=== PATIENT | male | born 1955 | race Caucasian/White ===

== ENCOUNTER 2023-03-23 13:26 | Emergency (ER) | payer OTHER ==
--- OUTSIDE RECORDS SUMMARY | 2023-03-23 13:29 | XMS REPORT | Continuity of Care Document ---
:1955 Author Organization [facility] t Address [address] [place] [address] [place] [id number] Care Team Providers Name Role Phone TOVA MAJANO Attending Clinician Unavailable Tova Majano MD Attending Clinician Doctor Unassigned, [place] Attending Clinician Unavailable Payers Payer Name Policy Type Policy Number Effective Date Expiration Date sandro MEDICARE PART A [id number] 2018 \T\ B 00:00:00 [facility] FELICIA LOPEZ [id number] 2018 00:00:00 Problems This patient has no known problems. Allergies, Adverse Reactions, Alerts Allergy Allergy Status Severity Reaction(s) Onset Inactive Treating Comm ents Source Name Type Date Date Clinician CODEINE DRUG Active Med ITCHING 2018-10 [facility] INGREDI 11-08 ity of 00:00: [address] Medications This patient has no known medications. Procedures This patient has no known procedures. Encounters Start End Encounter Admission Attending Care Care Encounter Source Date/Time Date/Time Type Type Clinicians Facility Department ID 2021-03-28 2021-03-28 Outpatient TOVA ALLEN [facility] [id number] Univers 13:30:00 13:30:00 ity of [facility] 2020-03-22 2020-03-22 Office Tova MajanoIT [id number] 13:37:03 14:05:51 Visit [facility] [id number] [facility] [id number] 2020-03-22 2020-03-22 Outpatient R TOVA MAJANO [facility] [id number] Univers 14:00:00 14:00:00 ity [facility] 2020-03-12 2020-03-12 Orders Doctor SREE [id number] 00:00:00 00:00:00 Only Unassigned, JOHN [id number] [place] [facility] [id number] Results This patient has no known results.
[2023-03-23 14:33] LABS: Hematocrit 33.3 % (39.6-49.0); MCV 70.6 fL (80-100); MPV 7.2 fL (7.6-11.3); RBC Red Blood Cell Count 4.71 M/uL (4.33-5.43)
[2023-03-23 14:47] LABS: Potassium 3.3 mEq/L (3.5-5.1)
[2023-03-23] MEDS ORDERED: MAGNESIUM SULFATE 1 gm IVPB 1 GM/100 ML BAG IV ONE (15:33)
[2023-03-23] MEDS ORDERED: Magnesium Sulfate 2gm IVPB 2 G/50 ML BAG IV ONE (15:34)
[2023-03-23] MEDS ORDERED: POTASSIUM CL SA 10 MEQ TAB PO ONE (16:35)
[2023-03-23] MEDS ORDERED: CALCIUM GLUCONATE 1 GM IVPB 1 GM/50 ML BAG IV ONE (16:35)
--- NOTE | 2023-03-23 18:34 | ER ---
Nurse's Notes [facility] Name: Omar Fan Jr Age: 67 yrs Sex: Male : 1955 Arrival Date: 03/23/2023 Time: 13:26 Bed 10 Private MD: Jorge Grayson Diagnosis: Hypomagnesemia;Anemia, unspecified;Hypocalcemia;Hypokalemia Presentation: 03/23 13:48 Chief complaint: Patient states: Dr. Grayson office sent to ER for abnormal lab ld1 results. Coronavirus screen: At this time, the client does not indicate any symptoms associated with coronavirus-19. Ebola Screen: No symptoms or risks identified at this time. Initial Sepsis Screen: Does the patient meet any 2 criteria? No. Patient's initial sepsis screen is negative. Does the patient have a suspected source of infection? No. Patient's initial sepsis screen is negative. Risk Assessment: Do you want to hurt yourself or someone else? Patient reports no desire to harm self or others. Onset of symptoms was March 23, 2023. 13:48 Method Of Arrival: Ambulatory ld1 13:48 Acuity: YUSUF 3 ld1 Triage Assessment: 13:45 General: Appears in no apparent distress. comfortable, Behavior is calm, cooperative, ld1 appropriate for age. Pain: Denies pain. EENT: No signs and/or symptoms were reported regarding the EENT system. Neuro: Level of Consciousness is awake, alert, obeys commands, Oriented to person, place, time, situation. Cardiovascular: Capillary refill < 3 seconds Patient's skin is warm and dry. Respiratory: Airway is patent Respiratory effort is even, unlabored, Breath sounds with wheezes bilaterally. GI: Abdomen is round non-distended. : No signs and/or symptoms were reported regarding the genitourinary system. Derm: No signs and/or symptoms reported regarding the dermatologic system. Musculoskeletal: No signs and/or symptoms reported regarding the musculoskeletal system. Historical: - Allergies: 13:45 Codeine; ld1 - PMHx: 13:45 Hypertensive disorder; Diabetes mellitus; BPH; GERD; Restless leg syndrome; Depressive ld1 disorder; - PSHx: 13:45 None; ld1 - Immunization history:: Adult Immunizations up to date, Client reports receiving the 2nd dose of the Covid vaccine. - Social history:: Smoking status: Patient denies any tobacco usage or history of. Patient/guardian denies using alcohol, Smoking status: Patient reports the use of cigarette tobacco products, smokes one pack cigarettes per day. Screenin:03 [facility] ED Fall Risk Assessment (Adult) History of falling in the last 3 months, nj1 including since admission No falls in past 3 months (0 pts) Confusion or Disorientation No (0 pts) Intoxicated or Sedated No (0 pts) Impaired Gait No (0 pts) Mobility Assist Device Used No (0 pt) Altered Elimination No (0 pt) Score/Fall Risk Level 0 - 2 = Low Risk Oriented to surroundings, Maintained a safe environment, Hourly rounding (assess needs \T\ fall precautionary measures) done. Abuse screen: Denies threats or abuse. Denies injuries from another. Nutritional screening: No deficits noted. Tuberculosis screening: No symptoms or risk factors identified. Assessment: 15:30 Reassessment: Patient appears in no apparent distress at this time. Patient and/or nj1 family updated on plan of care and expected duration. Pain level reassessed. Patient is alert, oriented x 3, equal unlabored respirations, skin warm/dry/pink. Patient denies pain at this time. Vital Signs: 13:45 BP 145 / 79; Pulse 71; Resp 18; Temp 97.9(TE); Pulse Ox 96% on R/A; Weight 108.86 kg; ld1 Height 5 ft. 8 in. ; Pain 0/10; 15:49 BP 131 / 73; Pulse 74; Resp 15; Pulse Ox 98% ; aw1 17:35 BP 127 / 77; Pulse 79; Resp 18; Pulse Ox 95% on R/A; Pain 0/10; nj1 18:25 BP 133 / 77; Pulse 78; Resp 18; Pulse Ox 96% on R/A; Pain 0/10; nj1 13:45 Body Mass Index 36.49 (108.86 kg, 172.72 cm) ld1 13:45 Pain Scale: Adult ld1 17:35 Pain Scale: Adult nj1 18:25 Pain Scale: Adult nj1 ED Course: 13:31 Patient arrived in ED. im 13:31 Jorge Grayson MD is Private Physician. im 13:34 Andrew Arguello MD is Attending Physician. rt 13:43 Attending Physician role handed off by Andrew Arguello MD ms3 13:43 Yosef Landis DO is Attending Physician. ms3 13:45 Arm band placed on right wrist. ld1 13:49 Triage completed. ld1 14:31 CBC w/o diff Sent. zm 14:31 Magnesium Sent. zm 14:31 BMP Sent. zm 14:31 Inserted saline lock: 20 gauge in right antecubital area, using aseptic technique. zm Blood collected. 14:33 Initial lab(s) drawn, by nv, sent to lab. zm 15:02 Laurel Shipman, RN is Primary Nurse. nj1 15:04 Patient has correct armband on for positive identification. Bed in low position. Call nj1 light in reach. Adult w/ patient. 16:35 Inserted saline lock: 22 gauge in left antecubital area, using aseptic technique. nj1 18:31 No provider procedures requiring assistance completed. nj1 18:33 Jorge Grayson MD is Referral Physician. ms3 18:40 IV discontinued, intact, bleeding controlled. nj1 Administered Medications: 15:32 Drug: Magnesium Sulfate IVPB 3 grams Route: IVPB; Infused Over: 3 hrs; Site: right [facility] antecubital; 16:40 Follow up: Response: No adverse reaction nj1 18:25 Follow up: IV Status: Completed infusion; IV Intake: 150ml nj1 16:30 Drug: Potassium Chloride PO 40 mEq Route: PO; nj1 17:36 Follow up: Response: No adverse reaction nj1 16:38 Drug: Calcium Gluconate IVPB 1 grams Route: IVPB; Infused Over: 60 mins; Site: left [facility] antecubital; 17:34 Follow up: Response: No adverse reaction; IV Status: Completed infusion; IV Intake: [id number] Medication: 18:31 VIS not applicable for this client. nj1 Intake: 17:34 IV: 50ml; Total: 50ml. nj1 18:25 IV: 150ml; Total: 200ml. nj1 Outcome: 18:33 Discharge ordered by . ms3 18:40 Discharged to home ambulatory. nj1 18:40 Condition: stable 18:40 Discharge instructions given to patient, Instructed on discharge instructions, follow up and referral plans. medication usage, Demonstrated understanding of instructions, follow-up care, medications, Prescriptions given X 1. 18:45 Patient left the ED. nj1 Signatures: Yosef Landis, DO ms3 Jolie Landis RN RN ld1 Gayarti Reagan Ryan, MD MD rt Laurel Shipman RN RN nj1 Marry Phillips Alyssa aw1 Corrections: (The following items were deleted from the chart) 13:47 13:45 Allergies: No Known Allergies; ld1 ld1 18:54 18:54 Patient left the ED. nj1 nj1
--- NOTE | 2023-03-23 18:34 | EDPHYS ---
Physician Documentation [facility] Name: Omar Fan Jr Age: 67 yrs Sex: Male : 1955 Arrival Date: 03/23/2023 Time: 13:26 Bed 10 Private MD: Jorge Grayson ED Physician Yosef Landis HPI: 03/23 14:11 This 67 yrs old Male presents to ER via Ambulatory with complaints of Abnormal Lab ms3 Results. 14:11 67-year-old male with past medical history of hypertension, diabetes, BPH, GERD, ms3 restless leg syndrome presents from Dr. Grayson's office after having labs drawn on March 19, 2023. Patient states he was sent in for low calcium. Patient's calcium was 8.4. Patient's magnesium was 0.8. Patient denies pain. Patient denies nausea, vomiting, shortness of breath.. Historical: - Allergies: 13:45 Codeine; ld1 - PMHx: 13:45 Hypertensive disorder; Diabetes mellitus; BPH; GERD; Restless leg syndrome; Depressive ld1 disorder; - PSHx: 13:45 None; ld1 - Immunization history:: Adult Immunizations up to date, Client reports receiving the 2nd dose of the Covid vaccine. - Social history:: Smoking status: Patient denies any tobacco usage or history of. Patient/guardian denies using alcohol, Smoking status: Patient reports the use of cigarette tobacco products, smokes one pack cigarettes per day. ROS: 14:11 Constitutional: Negative for fever, and chills. Neck: Negative for injury, pain, and ms3 swelling, Cardiovascular: Negative for chest pain, and palpitations. Respiratory: Negative for shortness of breath, cough, wheezing, and pleuritic chest pain, Abdomen/GI: Negative for abdominal pain, nausea, vomiting, diarrhea, and constipation, MS/Extremity: Negative for injury and deformity, Skin: Negative for injury, rash, and discoloration, Neuro: Negative for headache, weakness, numbness, tingling. 14:11 All other systems are negative. Exam: 14:11 Constitutional: This is a well developed, well nourished patient who is awake, alert, ms3 and in no acute distress. Head/Face: Normocephalic, atraumatic. Eyes: Pupils equal round and reactive to light, extra-ocular motions intact. Lids and lashes normal. Conjunctiva and sclera are non-icteric and not injected. Periorbital areas with no swelling, redness, or edema. Neck: Trachea midline, no cervical lymphadenopathy. Supple, full range of motion without nuchal rigidity, or vertebral point tenderness. No Meningismus. Chest/axilla: Normal chest wall appearance and motion. Nontender with no deformity. Cardiovascular: Regular rate and rhythm with a normal S1 and S2. No gallops, murmurs, or rubs. Normal PMI, no JVD. No pulse deficits. Respiratory: Lungs have equal breath sounds bilaterally, clear to auscultation and percussion. No rales, rhonchi or wheezes noted. No increased work of breathing, no retractions or nasal flaring. Abdomen/GI: Soft, non-tender, with normal bowel sounds. No distension or tympany. No guarding or rebound. No evidence of tenderness throughout. Skin: Warm, dry with normal turgor. Normal color with no rashes, no lesions, and no evidence of cellulitis. MS/ Extremity: Pulses equal, no cyanosis. Neurovascular intact. Full, normal range of motion. Vital Signs: 13:45 BP 145 / 79; Pulse 71; Resp 18; Temp 97.9(TE); Pulse Ox 96% on R/A; Weight 108.86 kg; ld1 Height 5 ft. 8 in. ; Pain 0/10; 15:49 BP 131 / 73; Pulse 74; Resp 15; Pulse Ox 98% ; aw1 17:35 BP 127 / 77; Pulse 79; Resp 18; Pulse Ox 95% on R/A; Pain 0/10; nj1 18:25 BP 133 / 77; Pulse 78; Resp 18; Pulse Ox 96% on R/A; Pain 0/10; nj1 13:45 Body Mass Index 36.49 (108.86 kg, 172.72 cm) ld1 13:45 Pain Scale: Adult ld1 17:35 Pain Scale: Adult nj1 18:25 Pain Scale: Adult nj1 MDM: 13:50 Patient medically screened. ms3 14:11 Differential Diagnosis Hypocalcemia vs Hypomagnesemia vs lab error. ms3 18:33 Data reviewed: vital signs, nurses notes, lab test result(s), and as a result, I will ms3 discharge patient. Care significantly affected by the following chronic conditions: Diabetes, Hypertension. Counseling: I had a detailed discussion with the patient and/or guardian regarding: the historical points, exam findings, and any diagnostic results supporting the discharge/admit diagnosis, lab results, the need for outpatient follow up, to return to the emergency department if symptoms worsen or persist or if there are any questions or concerns that arise at home. Special discussion: I discussed with the patient/guardian in detail that at this point there is no indication for admission to the hospital. It is understood, however, that if the symptoms persist or worsen the patient needs to return immediately for re-evaluation. ED course: Patient's electrolytes replaced in the emergency department. Patient remains asymptomatic. Patient to follow-up with Dr. Grayson in 2 to 3 days. Patient understands agrees with plan. All questions were answered. Return precautions discussed include worsening symptoms, or any other concerns. 03/23 13:50 Order name: BMP; Complete Time: 14:54 ms3 03/23 13:50 Order name: Magnesium; Complete Time: 14:54 ms3 03/23 13:50 Order name: CBC w/o diff; Complete Time: 14:52 ms3 Administered Medications: 15:32 Drug: Magnesium Sulfate IVPB 3 grams Route: IVPB; Infused Over: 3 hrs; Site: right ne1 antecubital; 16:40 Follow up: Response: No adverse reaction nj1 18:25 Follow up: IV Status: Completed infusion; IV Intake: 150ml nj1 16:30 Drug: Potassium Chloride PO 40 mEq Route: PO; nj1 17:36 Follow up: Response: No adverse reaction nj1 16:38 Drug: Calcium Gluconate IVPB 1 grams Route: IVPB; Infused Over: 60 mins; Site: left ne1 antecubital; 17:34 Follow up: Response: No adverse reaction; IV Status: Completed infusion; IV Intake: [id number] Disposition Summary: 03/23/23 18:33 Discharge Ordered Location: Home ms3 Condition: Stable ms3 Diagnosis - Hypomagnesemia ms3 - Anemia, unspecified ms3 - Hypocalcemia ms3 - Hypokalemia ms3 Followup: ms3 - With: - When: 2 - 3 days - Reason: Recheck today's complaints Discharge Instructions: - Discharge Summary Sheet ms3 - Anemia ms3 - Hypomagnesemia ms3 - Hypocalcemia, Adult ms3 - Hypokalemia ms3 Forms: - Medication Reconciliation Form ms3 - Thank You Letter ms3 - Antibiotic Education ms3 - Prescription Opioid Use ms3 Prescriptions: - magnesium 200 mg Oral tablet - take 2 tablet by ORAL route daily; 40 tablet; Refills: 0, Product Selection ms3 Permitted Signatures: Dispatcher [employer] EDMA Yosef Landis, DO ms3 Jolie Landis RN RN ld1 Laurel Shipman RN RN nj1 Corrections: (The following items were deleted from the chart) 13:47 13:45 Allergies: No Known Allergies; ld1 ld1
[2023-03-23 20:08] VITALS: TEMP 97.9
[2023-03-23 20:13] VITALS: BP 133/77; O2SAT 96
== END 2023-03-23 18:54 | disposition home or self-care (01) ==
LOC: ER 13:26
DX: E83.51 Hypocalcemia (principal); E83.42 Hypomagnesemia; D64.9 Anemia, unspecified; E87.6 Hypokalemia; E11.9 Type 2 diabetes mellitus without complications; F17.210 Nicotine dependence, cigarettes, uncomplicated; I10 Essential (primary) hypertension; Z88.5 Allergy status to narcotic agent
CPT/HCPCS: 80048; 36415; 83735; 85027; 99284; J3475 ×2; J0610

== ENCOUNTER 2023-08-23 13:09 | Emergency (ER) | payer OTHER ==
--- OUTSIDE RECORDS SUMMARY | 2023-08-23 13:12 | XMS REPORT | Continuity of Care Document ---
:1955 Author Organization [facility] t Address [address] [place] [address] [place] [address] Care Team Providers Name Role Phone TOVA MAJANO Attending Clinician Unavailable Tova Majano MD Attending Clinician Doctor Unassigned, [place] Attending Clinician Unavailable Payers Payer Name Policy Type Policy Number Effective Date Expiration Date sandro MEDICARE PART A [id number] 2018 \T\ B 00:00:00 [place] FELICIA LOPEZ [id number] 2018 00:00:00 Problems This patient has no known problems. Allergies, Adverse Reactions, Alerts Allergy Allergy Status Severity Reaction(s) Onset Inactive Treating Comm ents Source Name Type Date Date Clinician CODEINE DRUG Active Med ITCHING 2018-10 [facility] INGREDI 11-08 ity of 00:00: [address] Medications This patient has no known medications. Procedures This patient has no known procedures. Encounters Start End Encounter Admission Attending Care Care Encounter Source Date/Time Date/Time Type Type Clinicians Facility Department ID 2021-03-28 2021-03-28 Outpatient TOVA ALLEN [facility] [id number] Univers 13:30:00 13:30:00 ity of [facility] 2020-03-22 2020-03-22 Office Tova MajanoIT [id number] 13:37:03 14:05:51 Visit [facility] [id number] [facility] [id number] 2020-03-22 2020-03-22 Outpatient R TOVA MAJANO [facility] [id number] [facility] 14:00:00 14:00:00 ity [facility] 2020-03-12 2020-03-12 Orders Doctor SREE [id number] 00:00:00 00:00:00 Only Unassigned, JOHN [id number] [place] [facility] [id number] Results This patient has no known results.
[2023-08-23] MEDS ORDERED: NA CHLORIDE 0.9% 1,000 ML ONE (13:38)
[2023-08-23 13:41] LABS: Absolute Lymphocytes (CBC) 1.1 K/uL (0.7-4.9); Hematocrit 26.9 % (39.6-49.0); Lymphocytes % 11.3 % (15.3-44.8); MCV 62.8 fL (80-100); MPV 7.3 fL (7.6-11.3); Platelets 361 thou/uL (152-406); RBC Red Blood Cell Count 4.29 M/uL (4.33-5.43)
[2023-08-23 13:58] LABS: Magnesium 1.8 mg/dL (1.6-2.4); Potassium 3.4 mEq/L (3.5-5.1); Troponin High Sensitivity 10.2 pg/mL (<58.9)
[2023-08-23 14:32] LABS: Blood Morphology Comment NOTED (NOT SEEN); Hypochromasia 2+; Platelet Estimate ADEQ; White Blood Cell Scan OK (OK)
--- NOTE | 2023-08-23 14:55 | RAD REPORT ---
EXAM DESCRIPTION: CT - Head Brain Wo Cont - 08/23/2023 1:58 pm CLINICAL HISTORY: ams COMPARISON: Head Brain Wo Cont dated 03/08/2023 TECHNIQUE: Noncontrast head CT images were obtained without IV contrast. Multiplanar reformats were generated and reviewed. All CT scans are performed using dose optimization technique as appropriate and may include automated exposure control or mA/KV adjustment according to patient size. FINDINGS: No intracranial hemorrhage, mass, or edema. Midline structures are unremarkable. Normal ventricular caliber for age. Sauer-white matter differentiation is preserved, without evidence of acute infarct. No abnormal extra- axial fluid collections. Mastoid air cells and visualized portions of the paranasal sinuses are clear. No acute bony findings. IMPRESSION: No evidence of an acute intracranial process.
--- NOTE | 2023-08-23 16:05 | RAD REPORT ---
EXAM DESCRIPTION: RADChest Single View08/23/2023 2:09 pm CLINICAL HISTORY: hypoglycemia COMPARISON: Chest Pa And Lat (2 Views) dated 05/27/2020; CHEST PA AND LAT 2 VIEW dated 10/02/2011; CH EST PA AND LAT 2 VIEW dated 09/12/2011; CHEST PA AND LAT 2 VIEW dated 02/16/2006 TECHNIQUE: Portable AP view of the chest. FINDINGS: The lungs are clear. No pneumothorax or effusion. Aortic tortuosity. The cardiomediastina l contours are otherwise unremarkable. IMPRESSION: No acute cardiopulmonary process.
--- NOTE | 2023-08-23 16:22 | ER ---
Nurse's Notes [facility] Name: Omar Fan Jr Age: 68 yrs Sex: Male : 1955 Arrival Date: 08/23/2023 Time: 13:09 Bed 19 Private MD: Diagnosis: Hypoglycemia, unspecified;Acute Kidney Injury Presentation: 08/23 13:17 Chief complaint: EMS states: pt hypoglycemic at 41 gave two rounds of oral glucose , BS iw remains at 40, IV inserted and D10 started by ER staff. Coronavirus screen: At this time, the client does not indicate any symptoms associated with coronavirus-19. Ebola Screen: Patient negative for fever greater than or equal to 101.5 degrees Fahrenheit, and additional compatible Ebola Virus Disease symptoms Patient denies exposure to infectious person. Patient denies travel to an Ebola-affected area in the 21 days before illness onset. No symptoms or risks identified at this time. Onset of symptoms was August 23, 2023. 13:17 Method Of Arrival: EMS: [facility] iw 13:17 Acuity: YUSUF 2 iw 13:31 Initial Sepsis Screen: Does the patient meet any 2 criteria? Altered Mental Status. No. tm6 Patient's initial sepsis screen is negative. Does the patient have a suspected source of infection? No. Patient's initial sepsis screen is negative. Risk Assessment: Do you want to hurt yourself or someone else? Patient reports no desire to harm self or others. Triage Assessment: 13:31 General: Appears ill, Behavior is calm, cooperative. Pain: Denies pain. EENT: No signs tm6 and/or symptoms were reported regarding the EENT system. Neuro: Level of Consciousness is awake, obeys commands, confused, Oriented to person, place. Cardiovascular: Capillary refill < 3 seconds Patient's skin is warm and dry. Rhythm is sinus rhythm. Respiratory: Airway is patent Respiratory effort is even, unlabored, Respiratory pattern is regular, symmetrical. GI: Abdomen is round. : No signs and/or symptoms were reported regarding the genitourinary system. Derm: No signs and/or symptoms reported regarding the dermatologic system. Musculoskeletal: No signs and/or symptoms reported regarding the musculoskeletal system. Historical: - Allergies: 13:19 Codeine; iw - PMHx: 13:19 BPH; depressive disorder; diabetes mellitus; GERD; Hypertensive disorder; restless leg iw syndrome; - Immunization history:: Adult Immunizations up to date. - Social history:: Smoking status: Patient reports the use of cigarette tobacco products, unknown amount. Screenin:34 [facility] ED Fall Risk Assessment (Adult) History of falling in the last 3 months, tm6 including since admission No falls in past 3 months (0 pts). [facility] ED Fall Risk Assessment (Adult) Confusion or Disorientation Yes (5 pts). Abuse screen: Denies threats or abuse. Denies injuries from another. Nutritional screening: No deficits noted. Tuberculosis screening: No symptoms or risk factors identified. Assessment: 13:33 Reassessment: see triage assessment. tm6 13:34 Neuro: Reports numbness in left foot. tm6 18:35 Reassessment: Patient appears in no apparent distress at this time. tm6 19:15 Reassessment: Patient and/or family updated on plan of care and expected duration. Pain vc1 level reassessed. Patient is alert, oriented x 3, equal unlabored respirations, skin warm/dry/pink. Pain: Complains of pain in right leg and left leg. 20:29 Reassessment: No changes from previously documented assessment. Patient and/or family vc1 updated on plan of care and expected duration. Pain level reassessed. Patient is alert, oriented x 3, equal unlabored respirations, skin warm/dry/pink. Vital Signs: 13:31 BP 90 / 55; Pulse 88; Resp 20; Temp 98.1; Pulse Ox 93% on R/A; Weight 110 kg; tm6 13:34 BP 95 / 56; Pulse 90; Resp 20; Temp 98.1; Pulse Ox 92% on R/A; tm6 13:45 BP 89 / 56; Pulse 80; Resp 18; Pulse Ox 97% on R/A; ld1 14:48 BP 85 / 67; Pulse 81; Pulse Ox 93% on R/A; tm6 15:53 BP 109 / 61; Pulse 77; Resp 19; Pulse Ox 100% on R/A; tm6 16:30 BP 95 / 54; Pulse 85; Pulse Ox 97% on R/A; tm6 18:33 BP 86 / 73; Pulse 88; Resp 17; Pulse Ox 96% on R/A; tm6 18:36 BP 100 / 57; Pulse 90; tm6 19:20 BP 109 / 57; Pulse 88; Resp 14; Pulse Ox 98% ; vc1 20:29 BP 127 / 59; Pulse 92; Resp 15; Pulse Ox 98% ; vc1 ED Course: 13:05 Inserted saline lock: 22 gauge in left antecubital area, using aseptic technique. iw 13:12 Patient arrived in ED. bc6 13:17 Rabia Douglas, RN is Primary Nurse. tm6 13:19 Triage completed. iw 13:19 Arm band placed on. iw 13:20 Yosef Landis DO is Attending Physician. ms3 13:34 Inserted saline lock: 20 gauge in right forearm, using aseptic technique. Blood ld1 collected. 13:34 No provider procedures requiring assistance completed. tm6 13:34 Patient has correct armband on for positive identification. Bed in low position. Side tm6 rails up X2. Provided Education on: need for IV. Client placed on continuous cardiac and pulse oximetry monitoring. NIBP monitoring applied. monitoring analyst on. Door closed. Noise minimized. 13:59 CT Head Brain wo Cont In Process Unspecified. EDMS 14:11 XRAY Chest (1 view) In Process Unspecified. EDMS 18:30 Initiated transfer to [facility], spoke with Ammon Porter. wm 19:05 Report received from HANNAH Dave. vc1 20:04 Pt accepted for transfer to [facility] to Rm: [address] Lazaro, Jj \T\ 1926 per Ammon Porter.wm 21:00 EMS accepted for transport with ETA 2030. wm 21:23 Patient transferred, IV remains in place. vc1 Administered Medications: 14:48 Not Given (Physician Discretion): d50w50 ml IVP once; (1 amp) ld1 16:19 Drug: D5-NS IV 1000 ml IV at 100 ml/hr continuous Route: IV; Rate: 100 ml/hr; Site: tm6 right hand; Medication: 13:34 VIS not applicable for this client. tm6 Outcome: 16:22 ER care complete, transfer ordered by . ms3 21:22 Transferred by ground EMS Note: [facility] 21:22 Condition: good 21:22 Instructed on the need for transfer, 21:23 Patient left the ED. vc1 Signatures: Dispatcher [employer] EDMS Valorie Lyons RN RN iw Yosef Landis DO DO ms3 Jolie Landis, RN RN ld1 Idania Parekh Mena Morales, RN RN vc1 Marcela Vergara 6 Rabia Douglas RN RN tm6 Corrections: (The following items were deleted from the chart) 18:08 18:05 BP 220 / 133; Pulse 87bpm; Pulse Ox 97% 2 lpm Nasal Cannula; tm6 tm6 18:36 18:34 BP 95 / 54; Pulse 85bpm; Pulse Ox 97% RA; tm6 tm6 08/24 04:03 08/23 20:15 EMS accepted for transport with ETA 2030 [facility] 08/24 04:03 08/23 20:15 EMS accepted for transport with ETA 2030 [facility] 08/24 04:07 08/23 21:15 EMS accepted for transport with ETA 2030 wm
--- NOTE | 2023-08-23 16:22 | EDPHYS ---
Physician Documentation [facility] Name: Omar Fan Jr Age: 68 yrs Sex: Male : 1955 Arrival Date: 08/23/2023 Time: 13:09 Bed 19 Private MD: ED Physician Yosef Landis HPI: 08/23 16:55 This 68 yrs old Male presents to ER via EMS with complaints of Low Blood Sugar. ms3 16:55 68-year-old male with past medical history of BPH, depression, diabetes, GERD, ms3 hypertension, restless leg syndrome presents to the emergency department for hypoglycemia. On EMS arrival patient blood glucose 41. 24 g of oral glucose was administered blood glucose was then 39. A second round of oral glucose was given and patient's glucose was then 41. Patient denies eating breakfast or eating last night. Patient denies any pain. Historical: - Allergies: 13:19 Codeine; iw - PMHx: 13:19 BPH; depressive disorder; diabetes mellitus; GERD; Hypertensive disorder; restless leg iw syndrome; - Immunization history:: Adult Immunizations up to date. - Social history:: Smoking status: Patient reports the use of cigarette tobacco products, unknown amount. ROS: 16:55 Constitutional: Negative for fever, and chills. Neck: Negative for injury, pain, and ms3 swelling, Cardiovascular: Negative for chest pain, and palpitations. Respiratory: Negative for shortness of breath, cough, wheezing, and pleuritic chest pain, Abdomen/GI: Negative for abdominal pain, nausea, vomiting, diarrhea, and constipation, 16:55 All other systems are negative, Exam: 16:55 Constitutional: This is a well developed, well nourished patient who is awake, alert, ms3 and in no acute distress. Head/Face: Normocephalic, atraumatic. Neck: Trachea midline, no cervical lymphadenopathy. Supple, full range of motion without nuchal rigidity, or vertebral point tenderness. No Meningismus. Chest/axilla: Normal chest wall appearance and motion. Nontender with no deformity. Cardiovascular: Regular rate and rhythm with a normal S1 and S2. No gallops, murmurs, or rubs. Normal PMI, no JVD. No pulse deficits. Respiratory: Lungs have equal breath sounds bilaterally, clear to auscultation and percussion. No rales, rhonchi or wheezes noted. No increased work of breathing, no retractions or nasal flaring. Abdomen/GI: Soft, non-tender, with normal bowel sounds. No distension or tympany. No guarding or rebound. No evidence of tenderness throughout. Skin: Warm, dry with normal turgor. Normal color with no rashes, no lesions, and no evidence of cellulitis. MS/ Extremity: Pulses equal, no cyanosis. Neurovascular intact. Full, normal range of motion. Vital Signs: 13:31 BP 90 / 55; Pulse 88; Resp 20; Temp 98.1; Pulse Ox 93% on R/A; Weight 110 kg; tm6 13:34 BP 95 / 56; Pulse 90; Resp 20; Temp 98.1; Pulse Ox 92% on R/A; tm6 13:45 BP 89 / 56; Pulse 80; Resp 18; Pulse Ox 97% on R/A; ld1 14:48 BP 85 / 67; Pulse 81; Pulse Ox 93% on R/A; tm6 15:53 BP 109 / 61; Pulse 77; Resp 19; Pulse Ox 100% on R/A; tm6 16:30 BP 95 / 54; Pulse 85; Pulse Ox 97% on R/A; tm6 18:33 BP 86 / 73; Pulse 88; Resp 17; Pulse Ox 96% on R/A; tm6 18:36 BP 100 / 57; Pulse 90; tm6 19:20 BP 109 / 57; Pulse 88; Resp 14; Pulse Ox 98% ; vc1 20:29 BP 127 / 59; Pulse 92; Resp 15; Pulse Ox 98% ; vc1 MDM: 13:25 Patient medically screened. ms3 16:55 Differential diagnosis: Hypoglycemia vs renal failure. Data reviewed: vital signs, ms3 nurses notes, and as a result, I will transfer due to capacity. Consideration of Admission/Observation Patient to be transferred due to capacity. Management of patient was discussed with the following: Hospitalist: Dr Antonieta Chery accepts patient at [facility]. Requests Dr Meade be consulted. Discussed case with Dr Meade.. I considered the following discharge prescriptions or medication management in the emergency department Medications were administered in the Emergency Department. See MAR. Independent interpretation of the following test(s) in the Emergency Department X-Ray: My interpretation is CXR reveiwed by me does not reveal PNA. Care significantly affected by the following chronic conditions: Diabetes, Hypertension. Counseling: I had a detailed discussion with the patient and/or guardian regarding the historical points, exam findings, and any diagnostic results supporting the discharge/admit diagnosis, lab results, radiology results, the need [facility] ED course: Discussed labs and plan for transfer with patient. Patient understands and agrees with plan. All questions were answered. 08/23 13:21 Order name: Basic Metabolic Panel; Complete Time: 16:05 ms3 08/23 13:21 Order name: CBC with Diff; Complete Time: 16:05 ms3 08/23 13:21 Order name: Magnesium; Complete Time: 16:05 ms3 08/23 13:21 Order name: Troponin HS; Complete Time: 16:05 ms3 08/23 13:34 Order name: Glucose, Ancillary Testing; Complete Time: 16:05 EDMS 08/23 14:23 Order name: Glucose, Ancillary Testing; Complete Time: 16:05 EDMS 08/23 14:32 Order name: CBC Smear Scan; Complete Time: 16:05 EDMS 08/23 16:18 Order name: Glucose, Ancillary Testing; Complete Time: 16:19 EDMS 08/23 18:39 Order name: Glucose, Ancillary Testing; Complete Time: 18:43 EDMS 08/23 13:21 Order name: XRAY Chest (1 view); Complete Time: 16:15 ms3 08/23 13:34 Order name: CT Head Brain wo Cont; Complete Time: 16:05 ms3 08/23 13:21 Order name: EKG; Complete Time: 13:21 ms3 08/23 13:21 Order name: Cardiac monitoring; Complete Time: 13:30 ms3 08/23 13:21 Order name: EKG - Nurse/Tech; Complete Time: 13:45 ms3 08/23 13:21 Order name: IV Saline Lock; Complete Time: 13:34 ms3 08/23 13:21 Order name: Labs collected and sent; Complete Time: 13:45 ms3 08/23 13:21 Order name: O2 Per Protocol; Complete Time: 13:30 ms3 08/23 13:21 Order name: O2 Sat Monitoring; Complete Time: 13:30 ms3 Administered Medications: 14:48 Not Given (Physician Discretion): d50w50 ml IVP once; (1 amp) ld1 16:19 Drug: D5-NS IV 1000 ml IV at 100 ml/hr continuous Route: IV; Rate: 100 ml/hr; Site: rust right hand; Disposition Summary: 08/23/23 16:22 Transfer Ordered Notes: Transfer Location: Other Acute Care Facility ms3 Reason: Higher level of care ms3 Condition: Stable ms3 Problem: new ms3 Symptoms: are unchanged ms3 Accepting Physician: Dr Gardner(08/23/23 21:23) vc1 Diagnosis - Hypoglycemia, unspecified ms3 - Acute Kidney Injury ms3 Forms: - Medication Reconciliation Form ms3 - SBAR form ms3 Critical care time excluding procedures: 17:04 Critical care time: Bedside Care: 30 minutes, Consultation: 5 minutes. Total time: 35 ms3 minutes Signatures: Dispatcher [employer] EDValorie Villalobos RN RN Yosef Landis, DO ms3 Mena Morales RN RN vc1 Rabia Douglas RN RN rust Jolie Landis RN ld1 Corrections: (The following items were deleted from the chart) 21:23 16:22 Dr Gardner ms3 vc1
[2023-08-23] MEDS ORDERED: D5 0.9 NS 1,000 ML IV ONE (16:24)
[2023-08-23 21:33] VITALS: TEMP 98.1
[2023-08-23 21:46] VITALS: O2SAT 98
[2023-08-23 21:48] VITALS: BP 127/59
--- NOTE | 2023-08-25 14:13 | EKG ---
Test Date: 2023-08-23 Test Time: 14:43:59 Director Health: ASHA MEASUREMENT RESULTS: Intervals: Rate: 79 CO: 134 QRSD: 102 QT: 384 QTc: 440 [place]: P: 63 CO: 134 QRS: 35 T: 31 INTERPRETIVE STATEMENTS: Normal sinus rhythm Normal ECG Compared to ECG 10/02/2011 15:41:28 Left ventricular hypertrophy no longer present Electronically Signed On 08-25-23 14:08:23 SKIN TOGGLER by Rogers Rodriguez
== END 2023-08-23 21:23 ==
LOC: ER 13:09
DX: E11.649 Type 2 diabetes mellitus with hypoglycemia without coma (principal); N17.9 Acute kidney failure, unspecified; I10 Essential (primary) hypertension; Z72.0 Tobacco use; Z88.5 Allergy status to narcotic agent
CPT/HCPCS: 93005; 85025; 80048; 36415; 83735; 82947 ×4; 84484; 70450; 71045; 96374; 99285; J7042; J7030

== ENCOUNTER 2024-11-30 20:01 | Inpatient (IN) | payer MEDICARE, OTHER ==
[2024-11-30] MEDS ORDERED: ONDANSETRON 4 MG/2 ML VIAL ONE (20:38)
[2024-11-30] MEDS ORDERED: MULTIVITAMINS 10 ML VIAL (INJ) IV ONE (20:38)
[2024-11-30] MEDS ORDERED: THIAMINE 200 MG/2 ML INJ ONE (20:38)
[2024-11-30] MEDS ORDERED: FAMOTIDINE 20 MG/2 ML VIAL IV ONE (20:38)
[2024-11-30] MEDS ORDERED: FOLIC ACID 5 MG/ML VIAL ONE (20:39)
[2024-11-30] MEDS ORDERED: NA CHLORIDE 0.9% 2,000 ML ONE (20:39)
[2024-11-30 20:42] LABS: Absolute Basophils 0.1 K/uL (0-0.5); Absolute Lymphocytes (CBC) 0.9 K/uL (0.7-4.9); Absolute Monocytes 1.1 K/uL (0.1-1.3); Absolute Neutrophil 13.5 K/uL (1.8-8.0); Basophils % 0.3 % (0-1.3); Eosinophils % 0.1 % (0-4.4); Hematocrit 42.4 % (39.6-49.0); Hemoglobin 15.1 g/dL (13.6-17.9); Lymphocytes % 5.9 % (15.3-44.8); MCH 29.6 pg (27.0-35.0); MCHC 35.6 g/dL (32.0-36.0); MCV 83.3 fL (80-100); MPV 8.7 fL (7.6-11.3); Monocytes % 7.3 % (3.3-12.3); Neutrophils % 86.4 % (41.7-73.7); Platelets 296 thou/uL (152-406); Red Cell Distribution Width 13.7 % (12.1-15.2)
[2024-11-30 20:49] LABS: PT Prothrombin Time 16.4 SECONDS (9.4-12.5); Protime INR 1.57
--- NOTE | 2024-11-30 20:54 | RAD REPORT ---
EXAM: CT CHEST, ABDOMEN AND PELVIS WITHOUT CONTRAST CLINICAL INDICATION: Chest and abdominal pain. TECHNIQUE: CT chest, abdomen and pelvis was performed, without IV contrast, as per department protoco l. Axial, sagittal and coronal reconstructions were obtained. One or more of the following dose reduction techniques were used: Automated exposure control, adjustment of the mA and/or kV according to the patient size, and/or iterative reconstruction. Unless otherwise specified, incidental findings do not require dedicated imaging follow-up. The lack of IV and oral contrast limits evaluation of the mediastinum, danny, vessels, organs and fili l. COMPARISON: 2010 CT chest FINDINGS: Lungs are clear. No mediastinal or hilar lymphadenopathy seen. No pleural effusion. No pericardial effusion. Cholecystectomy. Wall of the gastric fundus and body appears thickened. Liver, spleen, pancreas, adrenals kidneys and bladder appear grossly normal There is no evidence of diverticulitis. Normal appendix. IMPRESSION: Apparent thickening of the wall stomach may indicate inflammation.
--- NOTE | 2024-11-30 20:55 | RAD REPORT ---
Procedure: Chest Single View HISTORY: Cough COMPARISON: 2022 FINDINGS: The lungs appear clear of acute infiltrate. No significant pleural effusion noted. The heart is normal size. IMPRESSION: No acute abnormality is displayed.
[2024-11-30 21:03] LABS: ALT/SGPT 43 U/L (16-61); AST/SGOT 29 U/L (15-37); Albumin 3.2 g/dL (3.4-5.0); Albumin/Globulin Ratio 0.7 (1.1-1.8); Alkaline Phosphatase 130 U/L (45-117); Anion Gap 13.4 mEq/L (5.0-15.0); BUN Blood Urea Nitrogen 16 mg/dL (7-18); Bicarbonate 23 mEq/L (21-32); Bilirubin Direct 0.2 mg/dL (0-0.2); Bilirubin Indirect, Calculated 0.4 mg/dL (0.2-0.8); Bilirubin Total 0.6 mg/dL (0.2-1.0); Globulin 4.4 g/dL (2.3-3.5); Glomerular Filtration Rate 66 ml/min (=/>90); Glucose Level 241 mg/dL (74-106); Lipase 58 U/L (13-75); NT PRO-BNP 156 pg/mL (<125); Protein, Total 7.6 g/dL (6.4-8.2); Sodium Level 136 mEq/L (136-145)
[2024-11-30 21:03] LABS: SARS-CoV-2 Antigen CONTROL BLUE LINE VIS/BG OK; SARS-CoV-2 Antigen Rapid Res Negative (Negative)
[2024-11-30 21:04] LABS: Magnesium < 0.5 mg/dL (1.6-2.4)
[2024-11-30 21:06] LABS: Potassium 2.4 mEq/L (3.5-5.1)
[2024-11-30 21:23] LABS: Phosphorus 2.6 mg/dL (2.5-4.9)
[2024-11-30 21:25] LABS: Band Neutrophils 1 % (0-1); Differential Total Cells Count 100; Lymphocytes 3 % (15-42); Monocytes 5 % (0-10); Reactive Lymphocytes 4 %; Segmented Neutrophils 87 % (40-80)
[2024-11-30 21:26] LABS: Blood Morphology Comment NOT SEEN (NOT SEEN); Platelet Estimate ADEQ
[2024-11-30] MEDS ORDERED: KCL 20 MEQ/100 mL IVPB 100 ML IV ONE (21:34)
[2024-11-30] MEDS ORDERED: CALCIUM GLUCONATE 1 GM IVPB 1 GM/50 ML BAG IV ONE (21:34)
[2024-11-30] MEDS ORDERED: Magnesium Sulfate 2gm IVPB 2 G/50 ML BAG IV ONE (21:34)
--- NOTE | 2024-11-30 21:40 | ER ---
Nurse's Notes [facility] Name: Omar Fan Jr Age: 69 yrs Sex: Male : 1955 Arrival Date: 11/30/2024 Time: 20:01 Bed 20 Private MD: Diagnosis: Other specified forms of tremor-essential;Vomiting;Diarrhea, unspecified;Elevated white blood cell count;Hypokalemia;Hypomagnesemia;Hypocalcemia;Weakness;Tobacco abuse counseling;Tobacco use;Type 2 diabetes mellitus with hyperglycemia Presentation: 11/30 20:20 Chief complaint: EMS states: TONED OUT FOR DIABETIC ISSUES. EMS REPORTS PT HAS BEEN dd2 EXPERIENCING N/V, ABDOMINAL PAIN AND COUGH X 3-4 DAYS. Coronavirus screen: cough unrelated to allergies, diarrhea, fatigue, nausea, shaking with chills, vomiting. Ebola Screen: No symptoms or risks identified at this time. Initial Sepsis Screen: Does the patient meet any 2 criteria? No. Patient's initial sepsis screen is negative. Does the patient have a suspected source of infection? No. Patient's initial sepsis screen is negative. Risk Assessment: Do you want to hurt yourself or someone else? Patient reports no desire to harm self or others. Onset of symptoms is unknown. Care prior to arrival: Glucose check: 274. 20:20 Method Of Arrival: EMS: [facility] dd2 20:20 Acuity: YUSUF 3 dd2 Triage Assessment: 20:25 General: Appears uncomfortable, Behavior is calm, cooperative, appropriate for age. dd2 Pain: Complains of pain in umbilical area, right lower quadrant and left lower quadrant Pain does not radiate. Pain currently is 6 out of 10 on a pain scale. Quality of pain is described as tender. EENT: No deficits noted. No signs and/or symptoms were reported regarding the EENT system. Neuro: Level of Consciousness is awake, alert, obeys commands, Oriented to person, place, time, situation, Appropriate for age. Cardiovascular: Denies chest pain, shortness of breath, Patient's skin is warm and dry. Respiratory: Airway is patent Respiratory effort is even, unlabored, Respiratory pattern is regular, symmetrical, Breath sounds are clear NO-PRODUCTIVE COUGH. GI: Abdomen is round non-distended, obese, Bowel sounds present X 4 quads. Abdomen is tender to palpation in umbilical area, right lower quadrant and left lower quadrant Reports lower abdominal pain, nausea, vomiting. : No deficits noted. No signs and/or symptoms were reported regarding the genitourinary system. Derm: No deficits noted. No signs and/or symptoms reported regarding the dermatologic system. Musculoskeletal: No deficits noted. No signs and/or symptoms reported regarding the musculoskeletal system. Circulation, motion, and sensation intact. Range of motion: intact in all extremities. Historical: - Allergies: 20:25 Codeine; dd2 - PMHx: 20:25 BPH; depressive disorder; diabetes mellitus; GERD; Hypertensive disorder; restless leg dd2 syndrome; - PSHx: 20:25 Cholecystectomy; RT SHOULDER SX; dd2 - Immunization history:: Adult Immunizations up to date. - Infectious Disease History:: Denies. - Family history:: not pertinent. - Social history:: Smoking status: Patient reports the use of cigarette tobacco products, smokes one pack cigarettes per day. Screenin:21 [facility] ED Fall Risk Assessment (Adult) History of falling in the last 3 months, dd2 including since admission No falls in past 3 months (0 pts) Confusion or Disorientation No (0 pts) Intoxicated or Sedated No (0 pts) Impaired Gait No (0 pts) Mobility Assist Device Used No (0 pt) Altered Elimination No (0 pt) Score/Fall Risk Level 0 - 2 = Low Risk Oriented to surroundings, Maintained a safe environment, Educated pt \T\ family on fall prevention, incl call for assistance when getting out of bed, Assessed \T\ reinforced patient's understanding of fall precautions, Hourly rounding (assess needs \T\ fall precautionary measures) done. Abuse screen: Denies threats or abuse. Nutritional screening: No deficits noted. Tuberculosis screening: No symptoms or risk factors identified. Assessment: 20:29 Reassessment: SEE TRIAGE ASSESSMENT FOR FULL ASSESSMENT. dd2 Vital Signs: 20:20 BP 148 / 82; Pulse 97; Resp 20; Temp 98.2; Pulse Ox 96% on R/A; Weight 99.79 kg (R); dd2 Pain 6/10; 21:00 BP 181 / 91; Pulse 91; Resp 23; Pulse Ox 96% on R/A; dd2 21:30 BP 158 / 87; Pulse 102; Resp 21; Pulse Ox 94% on R/A; dd2 22:15 BP 172 / 91; Pulse 95; Resp 20; Pulse Ox 93% on R/A; dd2 23:00 BP 169 / 98; Pulse 89; Resp 20; Pulse Ox 94% on R/A; dd2 20:20 Pain Scale: Adult dd2 Kari Coma Score: 20:35 Eye Response: spontaneous(4). Motor Response: obeys commands(6). Verbal Response: dd2 oriented(5). Total: 15. ED Course: 20:14 Patient arrived in ED. gm2 20:15 Mariano Mendez MD is Attending Physician. brisa 20:17 EYAL TYSON, HANNAH is Primary Nurse. dd2 20:25 Triage completed. dd2 20:25 Arm band placed on right wrist. dd2 20:30 First set of blood cultures drawn by me, Second set of blood cultures drawn by me. oh1 20:38 Initial lab(s) drawn, by me, sent to lab. oh1 20:40 XRAY Chest (1 view) In Process Unspecified. EDMS 20:46 CT Chest Abdomen Pelvis W/O Contrast In Process Unspecified. EDMS 20:56 SARS RAPID Sent. bm8 20:56 Flu Sent. bm8 20:56 Inserted saline lock: 20 gauge in left antecubital area, using aseptic technique. Blood bm8 collected. Flushed with 10 mL NS. 21:10 Patient has correct armband on for positive identification. Bed in low position. Call dd2 light in reach. Side rails up X2. Client placed on continuous cardiac and pulse oximetry monitoring. NIBP monitoring applied. pvc monitor on. 21:10 Door closed. Noise minimized. Warm blanket given. Pillow given. Verbal reassurance dd2 given. 21:10 Patient maintains SpO2 saturation greater than 95% on room air. dd2 21:29 EKG done, by field contact technician. reviewed by Mariano Mendez MD. oh1 21:38 Jasiel Duong MD is Hospitalizing Provider. brisa 22:05 No provider procedures requiring assistance completed. Inserted saline lock: 22 gauge dd2 in right upper arm, using aseptic technique. Blood collected. Flushed with 10 mL NS. 22:05 Repeat lab(s) drawn. by me, sent to lab. dd2 22:43 Notified ED physician of a critical lab result(s). Potassium of 2.3; calcium of 6.1. me1 22:51 Calcium Sent. dd2 12/01 07:00 Provided Education on: need for admit. ko1 07:00 Patient admitted, IV remains in place. ko1 07:07 Primary Nurse role handed off by EYAL TYSON, RN bd 12:48 Yoel Dyson, RN is Primary Nurse. bp Administered Medications: 11/30 20:55 Drug: Banana Bag - (Multivitamin IV 1 amp, NS 0.9% IV 1000 ml, Thiamine IV 100 mg, bm8 foLIC Acid IVPB 1 mg) IV at 125 ml/hr once Route: IV; Rate: 125 ml/hr; Site: left antecubital; 21:10 Follow up: Response: No adverse reaction dd2 12/01 05:28 Follow up: IV Status: Completed infusion; IV Intake: 1012ml dd2 11/30 20:56 Drug: NS 0.9% IV 1000 ml IV at 1000 ml once; to be given as a bolus over 60 minutes bm8 Route: IV; Rate: 1000 ml; Site: left antecubital; 21:11 Follow up: Response: No adverse reaction dd2 21:56 Follow up: Response: No adverse reaction; IV Status: Completed infusion; IV Intake: dd2 1000ml 20:56 Drug: Famotidine IVP 20 mg IVP once; dilute with 10 mL 0.9% NaCl; give over 2 minutes bm8 Route: IVP; Site: left antecubital; 21:11 Follow up: Response: No adverse reaction dd2 20:56 Drug: Ondansetron IVP 4 mg IVP once; over 2 minutes Route: IVP; Site: left antecubital; bm8 21:11 Follow up: Response: No adverse reaction dd2 21:56 Drug: Meclizine PO 25 mg PO once Route: PO; dd2 22:26 Follow up: Response: No adverse reaction dd2 22:24 Drug: Potassium Chloride IV 20 mEq IV at per protocol once; administer over 1-2 hours dd2 Route: IV; Rate: per protocol; Site: right upper arm; 22:39 Follow up: Response: No adverse reaction dd2 12/01 00:24 Follow up: Response: No adverse reaction; IV Status: Completed infusion; IV Intake: dd2 100ml 11/30 22:24 Drug: Calcium Gluconate IVPB 1 grams IVPB once over 60 mins; (mix in NS 100 mL) Route: dd2 IVPB; Infused Over: 60 mins; Site: left antecubital; 22:39 Follow up: Response: No adverse reaction dd2 23:24 Follow up: Response: No adverse reaction; IV Status: Completed infusion dd2 22:51 Drug: Magnesium Sulfate IVPB 2 grams IVPB once over 2 hrs Route: IVPB; Infused Over: 2 dd2 hrs; Site: left antecubital; 23:06 Follow up: Response: No adverse reaction dd2 12/01 00:51 Follow up: IV Status: Completed infusion; IV Intake: 100ml dd2 00:46 Drug: Solu-CORTEF IVP 100 mg IVP once Route: IVP; Site: right upper arm; dd2 01:02 Follow up: Response: No adverse reaction dd2 00:47 Drug: Potassium Chloride IV 20 mEq IV at per protocol once; administer over 1-2 hours dd2 Route: IV; Rate: per protocol; Site: left antecubital; 03:16 Follow up: Response: No adverse reaction; IV Status: Completed infusion; IV Intake: dd2 100ml Medication: 07:00 VIS not applicable for this client. ko1 Intake: 11/30 21:56 IV: 1000ml; Total: 1000ml. dd2 12/01 00:24 IV: 100ml; Total: 1100ml. dd2 00:51 IV: 100ml; Total: 1200ml. dd2 03:16 IV: 100ml; Total: 1300ml. dd2 05:28 IV: 1012ml; Total: 2312ml. dd2 Outcome: 11/30 21:40 Decision to Hospitalize by Provider. brisa 12/01 07:00 Admitted to ER Hold. Please see [facility] for further documentation. ko1 Condition: stable Instructed on the need for admit, 18:19 Patient left the ED. gb1 Signatures: Dispatcher [employer] Poly Altman Corey, MD MD cha Peltier, Brian, RN RN Maria Esther Pichardo RN RN ko1 Li Mandel RN RN me1 Leda Rose MD MD gb1 Josie Tao gm2 Arpan Garcia RN HANNAH bm8 EYAL TYSON RN RN dd2 Watson, Veronica oh1
--- NOTE | 2024-11-30 21:40 | EDPHYS ---
Physician Documentation [facility] Name: Omar Fan Jr Age: 69 yrs Sex: Male : 1955 Arrival Date: 11/30/2024 Time: 20:01 Bed 20 Private MD: ED Physician Mariano Mendez HPI: 11/30 20:19 This 69 yrs old Male presents to ER via Unassigned with complaints of N/V/D. brisa 20:19 The patient presents to the emergency department with nausea, that is mild, vomiting, brisa that is intermittent. Onset: The symptoms/episode began/occurred 3 day(s) ago. Possible causes: unknown. The symptoms are aggravated by nothing. The symptoms are alleviated by nothing. WEAK , N,V, D. Associated signs and symptoms: The patient has no apparent associated signs or symptoms. Severity of symptoms: At their worst the symptoms were moderate in the emergency department the symptoms are unchanged. The patient has experienced similar episodes in the past, multiple times. Historical: - Allergies: 20:25 Codeine; dd2 - PMHx: 20:25 BPH; depressive disorder; diabetes mellitus; GERD; Hypertensive disorder; restless leg dd2 syndrome; - PSHx: 20:25 Cholecystectomy; RT SHOULDER SX; dd2 - Immunization history:: Adult Immunizations up to date. - Infectious Disease History:: Denies. - Family history:: not pertinent. - Social history:: Smoking status: Patient reports the use of cigarette tobacco products, smokes one pack cigarettes per day. ROS: 20:19 Constitutional: Negative for fever, chills, and weight loss, Eyes: Negative for injury, brisa pain, redness, and discharge, ENT: Negative for injury, pain, and discharge, Neck: Negative for injury, pain, and swelling, Cardiovascular: Negative for chest pain, palpitations, and edema, Respiratory: Negative for shortness of breath, cough, wheezing, and pleuritic chest pain, Back: Negative for injury and pain, : Negative for injury, bleeding, discharge, and swelling, MS/Extremity: Negative for injury and deformity, Skin: Negative for injury, rash, and discoloration, Neuro: Negative for headache, weakness, numbness, tingling, and seizure, Psych: Negative for depression, anxiety, suicide ideation, homicidal ideation, and hallucinations, Allergy/Immunology: Negative for hives, rash, and allergies, Endocrine: Negative for neck swelling, polydipsia, polyuria, polyphagia, and marked weight changes, Hematologic/Lymphatic: Negative for swollen nodes, abnormal bleeding, and unusual bruising, 20:19 Abdomen/GI: Positive for abdominal pain, nausea and vomiting, diarrhea, 20:19 MS/extremity: Negative for acute changes, Exam: 20:19 Constitutional: This is a well developed, well nourished patient who is awake, alert, brisa and in no acute distress. Head/Face: Normocephalic, atraumatic. Eyes: Pupils equal round and reactive to light, extra-ocular motions intact. Lids and lashes normal. Conjunctiva and sclera are non-icteric and not injected. Cornea within normal limits. Periorbital areas with no swelling, redness, or edema. ENT: Nares patent. No nasal discharge, no septal abnormalities noted. Tympanic membranes are normal and external auditory canals are clear. Oropharynx with no redness, swelling, or masses, exudates, or evidence of obstruction, uvula midline. Mucous membranes moist. Neck: Trachea midline, no thyromegaly or masses palpated, and no cervical lymphadenopathy. Supple, full range of motion without nuchal rigidity, or vertebral point tenderness. No Meningismus. Chest/axilla: Normal chest wall appearance and motion. Nontender with no deformity. No lesions are appreciated. Respiratory: Lungs have equal breath sounds bilaterally, clear to auscultation and percussion. No rales, rhonchi or wheezes noted. No increased work of breathing, no retractions or nasal flaring. Back: No spinal tenderness. No costovertebral tenderness. Full range of motion. Male : Normal genitalia with no discharge or lesions. Skin: Warm, dry with normal turgor. Normal color with no rashes, no lesions, and no evidence of cellulitis. MS/ Extremity: Pulses equal, no cyanosis. Neurovascular intact. Full, normal range of motion., bilateral aka Neuro: Awake and alert, GCS 15, oriented to person, place, time, and situation. Cranial nerves II-XII grossly intact. Motor strength 5/5 in all extremities. Sensory grossly intact. Cerebellar exam normal. Normal gait. Psych: Awake, alert, with orientation to person, place and time. Behavior, mood, and affect are within normal limits. 20:19 Cardiovascular: Rate: tachycardic, actual rate is 110 bpm, Rhythm: regular, Pulses: Pulses are 4+ in bilateral radial, brachial, femoral, popliteal, posterior tibial and and dorsalis pedis arteries.. Heart sounds: normal, Edema: is not appreciated, JVD: is not appreciated, 20:25 Musculoskeletal/extremity: DVT Exam: No signs of deep vein thrombosis. no pain, no brisa swelling, no tenderness, negative Homans' sign noted on exam, no appreciated bluish discoloration, no erythema, no increased warmth, 22:07 ECG was reviewed by the Attending Physician. [facility] Vital Signs: 20:20 BP 148 / 82; Pulse 97; Resp 20; Temp 98.2; Pulse Ox 96% on R/A; Weight 99.79 kg (R); dd2 Pain 6/10; 21:00 BP 181 / 91; Pulse 91; Resp 23; Pulse Ox 96% on R/A; dd2 21:30 BP 158 / 87; Pulse 102; Resp 21; Pulse Ox 94% on R/A; dd2 22:15 BP 172 / 91; Pulse 95; Resp 20; Pulse Ox 93% on R/A; dd2 23:00 BP 169 / 98; Pulse 89; Resp 20; Pulse Ox 94% on R/A; dd2 20:20 Pain Scale: Adult dd2 Kari Coma Score: 20:35 Eye Response: spontaneous(4). Motor Response: obeys commands(6). Verbal Response: dd2 oriented(5). Total: 15. MDM: 20:15 Medical Screening Exam initiated [facility] 20:24 Differential diagnosis: Nonspecific abd pain, gastritis, cholecystitis, pancreatitis, brisa appendicitis, diverticulitis, viral gastroenteritis, gastroenteritis. Data reviewed: vital signs, nurses notes, EMS record, lab test result(s), EKG, radiologic studies, CT scan, plain films. Consideration of Admission/Observation Patient was admitted/placed on observation. Escalation of care including admission/observation considered. I considered the following discharge prescriptions or medication management in the emergency department Medications were administered in the Emergency Department. See MAR. Independent interpretation of the following test(s) in the Emergency Department EKG: See my EKG interpretation above. Test considered but Not performed: Ultrasound NO ABD USG. Care significantly affected by the following chronic conditions: Diabetes, Hypertension, Obesity, SMOKER. 11/30 20:17 Order name: Basic Metabolic Panel; Complete Time: 21:37 [facility] 11/30 20:17 Order name: CBC with Diff; Complete Time: 21:37 [facility] 11/30 20:17 Order name: LFT's; Complete Time: 21:37 [facility] 11/30 20:17 Order name: Magnesium; Complete Time: 21:37 [facility] 11/30 20:17 Order name: NT PRO-BNP; Complete Time: 21:37 [facility] 11/30 20:17 Order name: PT-INR; Complete Time: 21:13 [facility] 11/30 20:17 Order name: Troponin HS; Complete Time: 21:37 [facility] 11/30 20:17 Order name: Lipase; Complete Time: 21:37 [facility] 11/30 20:17 Order name: Blood Culture Adult (2) [facility] 11/30 20:17 Order name: Urinalysis w/ reflexes; Complete Time: 22:06 [facility] 11/30 20:26 Order name: Flu; Complete Time: 21:13 [facility] 11/30 20:26 Order name: SARS RAPID; Complete Time: 21:13 [facility] 11/30 20:44 Order name: Lactate w/ 2H reflex if indic.; Complete Time: 21:13 vc1 11/30 20:50 Order name: Manual Differential; Complete Time: 21:37 EDMS 11/30 21:15 Order name: Phosphorus; Complete Time: 21:37 EDMS 11/30 21:15 Order name: BMP; Complete Time: 22:47 [facility] 11/30 21:15 Order name: Calcium [facility] 11/30 22:54 Order name: Basic Metabolic Panel EDMS 11/30 22:54 Order name: Magnesium EDMS 11/30 22:54 Order name: Phosphorus EDMS 11/30 22:55 Order name: CBC with Automated Diff EDMS 11/30 22:55 Order name: CBC with Automated Diff EDMS 11/30 22:55 Order name: CBC with Automated Diff EDMS 11/30 22:55 Order name: CBC with Automated Diff EDMS 11/30 22:55 Order name: CBC with Automated Diff EDMS 11/30 22:55 Order name: Comprehensive Metabolic Panel EDMS 11/30 22:55 Order name: Comprehensive Metabolic Panel EDMS 11/30 22:55 Order name: Comprehensive Metabolic Panel EDMS 11/30 22:55 Order name: Comprehensive Metabolic Panel EDMS 11/30 22:55 Order name: Comprehensive Metabolic Panel EDMS 11/30 22:55 Order name: Magnesium EDMS 11/30 22:55 Order name: Magnesium EDMS 11/30 22:55 Order name: Magnesium EDMS 11/30 22:55 Order name: Magnesium EDMS 11/30 22:55 Order name: Magnesium EDMS 11/30 22:55 Order name: Phosphorus EDMS 11/30 22:55 Order name: Phosphorus EDMS 11/30 22:55 Order name: Phosphorus EDMS 11/30 22:55 Order name: Phosphorus EDMS 11/30 22:55 Order name: Phosphorus EDMS 12/01 00:25 Order name: Glucose, Ancillary Testing EDMS 12/01 06:45 Order name: Glucose, Ancillary Testing EDMS 12/01 09:19 Order name: Osmolality, Urine EDMS 12/01 09:32 Order name: UR CL RANDOM EDMS 12/01 09:32 Order name: UR SODIUM EDMS 12/01 09:32 Order name: UR POTASSIUM EDMS 12/01 09:45 Order name: UR CREAT EDMS 12/01 09:58 Order name: Glucose, Ancillary Testing EDMS 12/01 10:16 Order name: Osmolality, Serum EDMS 11/30 20:17 Order name: XRAY Chest (1 view); Complete Time: 21:13 [facility] 11/30 20:17 Order name: CT Chest Abdomen Pelvis W/O Contrast; Complete Time: 21:13 [facility] 11/30 20:17 Order name: EKG; Complete Time: 20:18 [facility] 11/30 20:17 Order name: Cardiac monitoring; Complete Time: 20:56 [facility] 11/30 20:17 Order name: EKG - Nurse/Tech; Complete Time: 21:09 [facility] 11/30 20:17 Order name: IV Saline Lock; Complete Time: 20:56 [facility] 11/30 20:17 Order name: Labs collected and sent; Complete Time: 20:56 [facility] 11/30 20:17 Order name: O2 Per Protocol; Complete Time: 20:56 [facility] 11/30 20:17 Order name: O2 Sat Monitoring; Complete Time: 20:56 [facility] 11/30 22:44 Order name: IV - Large Bore; Complete Time: 22:51 [facility] EC:07 Rate is 110 beats/min. Rhythm is regular. QRS Beemer is Normal. CT interval is normal. brisa QRS interval is normal. QT interval is normal. No Q waves. T waves are Normal. No ST changes noted. Clinical impression: NSR w/ Non-specific ST/T Changes and No evidence of ischemia. Interpreted by me. Reviewed by me. Administered Medications: 20:55 Drug: Banana Bag - (Multivitamin IV 1 amp, NS 0.9% IV 1000 ml, Thiamine IV 100 mg, bm8 foLIC Acid IVPB 1 mg) IV at 125 ml/hr once Route: IV; Rate: 125 ml/hr; Site: left antecubital; 21:10 Follow up: Response: No adverse reaction dd2 12/01 05:28 Follow up: IV Status: Completed infusion; IV Intake: 1012ml dd2 11/30 20:56 Drug: NS 0.9% IV 1000 ml IV at 1000 ml once; to be given as a bolus over 60 minutes bm8 Route: IV; Rate: 1000 ml; Site: left antecubital; 21:11 Follow up: Response: No adverse reaction dd2 21:56 Follow up: Response: No adverse reaction; IV Status: Completed infusion; IV Intake: dd2 1000ml 20:56 Drug: Famotidine IVP 20 mg IVP once; dilute with 10 mL 0.9% NaCl; give over 2 minutes bm8 Route: IVP; Site: left antecubital; 21:11 Follow up: Response: No adverse reaction dd2 20:56 Drug: Ondansetron IVP 4 mg IVP once; over 2 minutes Route: IVP; Site: left antecubital; bm8 21:11 Follow up: Response: No adverse reaction dd2 21:56 Drug: Meclizine PO 25 mg PO once Route: PO; dd2 22:26 Follow up: Response: No adverse reaction dd2 22:24 Drug: Potassium Chloride IV 20 mEq IV at per protocol once; administer over 1-2 hours dd2 Route: IV; Rate: per protocol; Site: right upper arm; 22:39 Follow up: Response: No adverse reaction 2 12/01 00:24 Follow up: Response: No adverse reaction; IV Status: Completed infusion; IV Intake: dd2 100ml 11/30 22:24 Drug: Calcium Gluconate IVPB 1 grams IVPB once over 60 mins; (mix in NS 100 mL) Route: dd2 IVPB; Infused Over: 60 mins; Site: left antecubital; 22:39 Follow up: Response: No adverse reaction dd2 23:24 Follow up: Response: No adverse reaction; IV Status: Completed infusion dd2 22:51 Drug: Magnesium Sulfate IVPB 2 grams IVPB once over 2 hrs Route: IVPB; Infused Over: 2 dd2 hrs; Site: left antecubital; 23:06 Follow up: Response: No adverse reaction dd2 12/01 00:51 Follow up: IV Status: Completed infusion; IV Intake: 100ml dd2 00:46 Drug: Solu-CORTEF IVP 100 mg IVP once Route: IVP; Site: right upper arm; dd2 01:02 Follow up: Response: No adverse reaction dd2 00:47 Drug: Potassium Chloride IV 20 mEq IV at per protocol once; administer over 1-2 hours dd2 Route: IV; Rate: per protocol; Site: left antecubital; 03:16 Follow up: Response: No adverse reaction; IV Status: Completed infusion; IV Intake: dd2 100ml Disposition Summary: 11/30/24 21:40 Hospitalization Ordered Notes: Hospitalization Status: Inpatient Admission brisa Provider: Jasiel Duong cha Condition: Fair brisa Problem: new brisa Symptoms: have improved brisa Bed/Room Type: Standard brisa Location: Telemetry/MedSurg (Inpatient)(12/01/24 15:35) Room Assignment: [facility] [place](12/01/24 15:35) Diagnosis - Other specified forms of tremor - essential brisa - Vomiting brisa - Diarrhea, unspecified brisa - Elevated white blood cell count brisa - Hypokalemia brisa - Hypomagnesemia brisa - Hypocalcemia brisa - Weakness birsa - Tobacco abuse counseling brisa - Tobacco use brisa - Type 2 diabetes mellitus with hyperglycemia brisa Forms: - Medication Reconciliation Form brisa - SBAR form brisa - Leadership Thank You Letter brisa Signatures: Dispatcher [employer] Poly Altman Corey, MD MD cha Blanchard, Shelby, RN RN Baltazar Moran, VIJAY-C CINDER SNAPPER-Cla1 Sae Tellez RN RN ja1 Mena Morales RN RN vc1 Arpan Garcia RN RN bm8 EYAL TYSON RN RN dd2 Corrections: (The following items were deleted from the chart) 02/16 20:18 20:18 BASIC METABOLIC PANEL+C.LAB.BRZ ordered. EDMS EDMS 20:18 20:18 CBC+H.LAB.BRZ ordered. EDMS EDMS 20:18 20:18 HEPATIC FUNCTION+C.LAB.BRZ ordered. EDMS EDMS 20:18 20:18 MAGNESIUM+C.LAB.BRZ ordered. EDMS EDMS 20:18 20:18 PROBNP+C.LAB.BRZ ordered. EDMS EDMS 20:18 20:18 PROTIME (+INR)+COAG.LAB.BRZ ordered. EDMS EDMS 20:18 20:18 Troponin High Sensitivity+C.LAB.BRZ ordered. EDMS EDMS 20:18 20:18 LIPASE+C.LAB.BRZ ordered. EDMS EDMS 20:18 20:18 BLOOD CULTURE*+BA.LAB.BRZ ordered. EDMS EDMS 20:18 20:18 Urinalysis+U.LAB.BRZ ordered. EDMS EDMS 21:15 21:14 PHOSPHORUS+C.LAB.BRZ ordered. EDMS EDMS 23:24 21:40 Telemetry/MedSurg (Inpatient) brisa vc1 23:24 21:40 brisa vc1 12/01 07:52 11/30 23:24 [facility] ER HOLD vc1 bd 12/01 07:52 11/30 23:24 ERHOLD- vc1 bd 12/01 08:05 07:52 Intensive Care Unit bd ja1 08:05 07:52 6- bd ja1 15:35 08:05 [facility] ER HOLD ja1 ss 15:35 08:05 ERHOLD- ja1 ss
[2024-11-30 21:48] LABS: Specific Gravity 1.014 (1.005-1.030); Sqamous Epithelial <5 /HPF (None Seen); Urine Bacteria None Seen /HPF (<20); Urine Bilirubin NEGATIVE (Negative); Urine Blood 1+ (Negative); Urine Clarity Clear (Clear); Urine Color Light-Yellow (Yellow); Urine Culture Reflex Order NOT NEEDED; Urine Glucose 3+ (Negative); Urine Ketones 1+ (Negative); Urine Microscopic Reflex YN ORDER UMIC; Urine Mucus Slight /HPF (None Seen); Urine Nitrite NEGATIVE (Negative); Urine Protein 2+ (Negative); Urine RBC <5 /HPF (None Seen); Urine Urobilinogen Normal (Normal); Urine WBC <5 /HPF (<5); Urine WBC Clump Rare /HPF (None Seen); Urine Yeast (Budding) Trace /HPF (None Seen)
[2024-11-30] MEDS ORDERED: MECLIZINE HCL 12.5 MG TAB ONE (21:52)
[2024-11-30 22:41] LABS: Anion Gap 10.3 mEq/L (5.0-15.0)
[2024-11-30 22:43] LABS: Potassium 2.3 mEq/L (3.5-5.1)
[2024-11-30] MEDS ORDERED: ACETAMINOPHEN 325 MG TABLET PO PRN (22:52)
[2024-11-30] MEDS ORDERED: SODIUM CHLORIDE 0.9% 10ML INJ IV PRN (22:52)
[2024-11-30] MEDS: D5.45NS W/KCL 20MEQ 1,000 ML IV SCH (23:00)
--- NOTE | 2024-11-30 23:02 | P.HP ---
Certification for Inpatient Patient admitted to: Inpatient With expected LOS: >2 Midnights Patient will require the following post-hospital care: None Practitioner: I am a practitioner with admitting privileges, knowledge of patient current condition, hospital course, and medical plan of care. Services: Services provided to patient in accordance with Admission requirements found in Title 42 Section 412.3 of the Code of Federal Regulations <Baltazar Moran - Last Filed: 11/30/24 22:57> Patient History Date of Service: 11/30/24 Reason for admission: Hypomagnesemia, hypokalemia History of Present Illness: 69-year-old male with history of diet-controlled diabetes, GERD, hypertension, BPH, essential tremor presents to the emergency department with chief complaint of 1 week of nausea/vomiting/diarrhea. He denies abdominal pain, sick contacts, denies cough congestion. He reports multiple episodes of nausea/vomiting and diarrhea daily, had around 5 episodes of diarrhea today. Denies similar episodes in the past, last had EGD "a couple years ago". Patient was evaluated in the emergency department CT of the chest abdomen pelvis was obtained which showed apparent thickening of the wall of stomach which may indicate inflammation. Patient has severe electrolyte derangements including a potassium of 2.4, calcium of 6.3, magnesium of less than 0.5 lipase is normal white blood cell count 15.7 hemoglobin is 15.1 platelets 296 UA not concerning for UTI, denies fever and chills at home. Chemistry was repeated given significant abnormalities and does appear accurate, patient was given IV potassium, IV magnesium, IV calcium in the ED his QTc is around 470, he is having ectopy on the bedside monitor with frequent PVCs. Given severe electrolyte derangements will admit to ICU for now for close monitoring. He was negative for COVID and flu. - Past Medical/Surgical History -: Diabetes mellitus type 2 -: GERD -: Hypertension -: Essential tremor -: BPH -: Cholecystectomy -: Wrist/shoulder surgery -: Cataract surgery Psychosocial/ Personal History: Lives at home alone - Family History Family History: Reviewed- Non-Contributory - Social History Smoking Status: Current every day smoker Counseled patient to stop smoking for: less than 10 minutes Smoking therapy provided: No (Patient declined) Alcohol use: No CD- Drugs: No Caffeine use: Yes <Baltazar Moran - Last Filed: 11/30/24 22:57> Date of Service: 11/30/24 <DuongLyle ugaldepete Leanne - Last Filed: 12/25/24 13:02> Allergies codeine Allergy (Verified 12/01/24 00:07) Hives Home Medications: Amlodipine [Norvasc*] 1 tab PO DAILY 12/01/24 Atorvastatin Calcium 1 tab PO DAILY 12/01/24 Montelukast [Singulair*] 1 tab PO DAILY 12/01/24 Omeprazole [Prilosec] 1 tab PO DAILY 12/01/24 Primidone 1 tab PO DAILY 12/01/24 Trazodone [Desyrel*] 2 tab PO BEDTIME 12/01/24 Valsartan 1 tab PO BEDTIME 12/01/24 Calcium Carbonate/Vitamin D3 [Oscal 500 + Vit D 200 Iu Tab*] 2 tab PO BID #120 tab 12/04/24 Magnesium Chloride [Slow-Mag*] 128 mg PO BID #120 tab 12/04/24 Spironolactone [Aldactone*] 25 mg PO DAILY #30 tab 12/04/24 Review of Systems 10-point ROS is otherwise unremarkable Gastrointestinal: Nausea, Vomiting, Diarrhea <Baltazar Moran - Last Filed: 11/30/24 22:57> Physical Examination - Physical Exam General: Alert, In no apparent distress, Oriented x3 HEENT: Atraumatic, PERRLA, Mucous membr. moist/pink Neck: Supple, 2+ carotid pulse no bruit, No LAD Respiratory: Clear to auscultation bilaterally, Normal air movement Cardiovascular: Regular rate/rhythm, Normal S1 S2 Gastrointestinal: Normal bowel sounds, No tenderness Musculoskeletal: No tenderness Integumentary: No rashes Neurological: Normal speech, Normal strength at 5/5 x4 extr - Studies Laboratory Data (last 24 hrs) 11/30/24 11/30/24 11/30/24 22:02 21:13 20:30 WBC Hgb Hct Plt Count PT 16.4 H INR 1.57 Sodium 136 Potassium 2.3 L* BUN 14 Creatinine 0.95 Glucose 221 H Phosphorus Cancelled Magnesium Total Bilirubin AST ALT Alkaline Phosphatase Lipase 11/30/24 11/30/24 20:30 20:30 WBC 15.70 H Hgb 15.1 Hct 42.4 Plt Count 296 PT INR Sodium 136 Potassium 2.4 L* BUN 16 Creatinine 1.18 Glucose 241 H Phosphorus 2.6 Magnesium < 0.5 L* Total Bilirubin 0.6 AST 29 ALT 43 Alkaline Phosphatase 130 H Lipase 58 Microbiology Data (last 24 hrs): 11/30/24 20:32 Nasopharnyx Influenza Type A Antigen Screen - Final 11/30/24 20:32 Nasopharnyx Influenza Type B Antigen Screen - Final <Baltazar Moran - Last Filed: 11/30/24 22:57> Assessment and Plan - Plan Assessment: Severe hypomagnesemia and hypokalemia Hypocalcemia Nausea/vomiting/diarrhea Diabetes mellitus type [id number] Dehydration Leukocytosis History of GERD/CT with gastric wall thickening Hypertension BPH Plan: Severe hypomagnesemia and hypokalemia Hypocalcemia Severe electrolyte derangements likely secondary to nausea/vomiting/diarrhea for the last 1 week Chemistry repeated to ensure accuracy-appears accurate Potassium, magnesium, calcium supplemented in ED Will repeat BMP, mag and Phos in 4 hours Admit ICU for now given risk for arrhythmias with severe electrolyte derangements Electrolyte protocols in place QTc 470 Nausea/vomiting/diarrhea Abdomen soft and nontender COVID and influenza negative CT chest abdomen pelvis showing inflammation of the gastric wall Reports last EGD around 2 years ago, has never been told of any abnormalities of the stomach Twice daily PPI, n.p.o., advance diet as tolerated Empiric antibiotics with Zosyn-avoiding antibiotics no prolonged QT with electrolyte regimens Diabetes mellitus type [id number] Every 6 hours Accu-Chek, sliding scale insulin Was previously on Ozempic but stopped a month ago Not on any medications for diabetes at this time Dehydration Leukocytosis Significant dehydrated, suspect leukocytosis may be related to hemoconcentration Continue IV fluids, monitor CBC daily Monitor for fevers Urine not concerning. No tract infection History of GERD/CT with gastric wall thickening Twice daily PPI Advance diet as tolerated Would benefit with EGD outpatient if his diet can be advanced Hypertension BPH Continue home medications DVT PPX: Lovenox Code status: Full Discharge Plan: Home Plan to discharge in: Greater than 2 days - Advance Directives Does patient have a Living Will: No Does patient have a Durable POA for Healthcare: No - Code Status/Comfort Care Code Status Assessed: Yes (Full code) Critical Care: Yes Time Spent Managing Pts Care (In Minutes): 70 <Baltazar Moran - Last Filed: 11/30/24 22:57> Date of Service: 11/30/24 Patient was seen and examined. Events of the last 24 hours have been noted. Spoke with with MARYJANE regarding patient's clinical picture after evaluating and examining the patient independently. I performed a substantial part of the MDM during this patient's care today. I personally made or approved the documented management plan and acknowledge its risk of complications. I agree with the findings and documentation provided in the MARYJANE's notes. <Jasiel Duong - Last Filed: 12/25/24 13:02>
[2024-12-01] MEDS: INSULIN REGULAR (HUMAN) 100 UNIT/ML SQ SCH
[2024-12-01] MEDS ORDERED: ONDANSETRON 4 MG/2 ML VIAL ONE ×2 (00:17→10:24)
[2024-12-01] MEDS ORDERED: D5.45NS W/KCL 20MEQ 1,000 ML IV ONE (00:17)
[2024-12-01] MEDS: ONDANSETRON 4 MG/2 ML VIAL IV PRN (00:19)
[2024-12-01] MEDS ORDERED: KCL 20 MEQ/100 mL IVPB 100 ML IV ONE ×3 (00:28→09:49)
[2024-12-01] MEDS ORDERED: HYDROCORTISONE SUC 100 MG INJ ONE (00:28)
[2024-12-01] MEDS: PIPER TAZO 3.375 GM in NA CHLORIDE 0.9% 100 ML IV SCH (01:00)
[2024-12-01 01:07] VITALS: BMI 34.4
[2024-12-01] MEDS ORDERED: NA CHLORIDE 0.9% 100 ML ONE ×2 (02:39→09:49)
[2024-12-01] MEDS ORDERED: PIPERACIL/TAZO 3.375 GM VIAL IV ONE ×2 (02:39→09:50)
[2024-12-01 04:38] LABS: Anion Gap 9.3 mEq/L (5.0-15.0); Phosphorus 2.6 mg/dL (2.5-4.9); Potassium 3.3 mEq/L (3.5-5.1)
[2024-12-01 04:51] LABS: Magnesium 0.8 mg/dL (1.6-2.4)
[2024-12-01] MEDS ORDERED: POTASSIUM CL 40 MEQ in NA CHLORIDE 0.9% 500 ML IV SCH (05:00)
[2024-12-01] MEDS: Magnesium Sulfate 2gm IVPB 2 G/50 ML BAG IV SCH ×2 (05:00→13:00)
[2024-12-01] MEDS: KCL 20 MEQ/100 mL IVPB 100 ML IV SCH ×2 (05:00→05:07)
[2024-12-01 05:11] LABS: Absolute Lymphocytes (CBC) 0.6 K/uL (0.7-4.9); Absolute Monocytes 0.4 K/uL (0.1-1.3); Absolute Neutrophil 8.2 K/uL (1.8-8.0); Basophils % 0.3 % (0-1.3); Hematocrit 38.7 % (39.6-49.0); Lymphocytes % 6.7 % (15.3-44.8); MCH 29.9 pg (27.0-35.0); MCHC 36.1 g/dL (32.0-36.0); MCV 82.8 fL (80-100); MPV 8.4 fL (7.6-11.3); Nucleated Red Blood Cells % 0.1 % (0-0); Platelets 262 thou/uL (152-406); RBC Red Blood Cell Count 4.67 M/uL (4.33-5.43); Red Cell Distribution Width 13.2 % (12.1-15.2)
[2024-12-01] MEDS ORDERED: Magnesium Sulfate 2gm IVPB 2 G/50 ML BAG IV ONE ×3 (05:13→09:50)
[2024-12-01 05:38] LABS: Albumin 2.8 g/dL (3.4-5.0); Albumin/Globulin Ratio 0.7 (1.1-1.8); Anion Gap 9.6 mEq/L (5.0-15.0); Bilirubin Total 0.5 mg/dL (0.2-1.0); Protein, Total 6.8 g/dL (6.4-8.2)
[2024-12-01 05:42] LABS: Magnesium 0.7 mg/dL (1.6-2.4); Potassium 2.6 mEq/L (3.5-5.1)
[2024-12-01] MEDS ORDERED: CALCIUM GLUCONATE 1 GM IVPB 1 GM/50 ML BAG IV ONE (06:32)
[2024-12-01] MEDS: CALCIUM GLUCONATE 1 GM IVPB 1 GM/50 ML BAG IV ONE (06:39)
[2024-12-01] MEDS ORDERED: INSULIN REGULAR (HUMAN) 100 UNIT/ML ONE (06:43)
[2024-12-01] MEDS: SPIRONOLACTONE 25 MG TABLET PO SCH (08:00)
[2024-12-01] MEDS: PANTOPRAZOLE 40 MG INJ IVP SCH (09:00)
[2024-12-01] MEDS: ENOXAPARIN 40 MG/0.4 ML SQ SCH (09:00)
[2024-12-01] MEDS ORDERED: ENOXAPARIN 40 MG/0.4 ML SQ ONE (09:49)
[2024-12-01] MEDS ORDERED: PANTOPRAZOLE 40 MG INJ ONE (09:49)
[2024-12-01] MEDS ORDERED: Magnesium Sulfate 2gm IVPB 6 G/150 ML BAG IV ONE (13:43)
[2024-12-02 01:28] LABS: Albumin 2.6 g/dL (3.4-5.0); Albumin/Globulin Ratio 0.7 (1.1-1.8); Anion Gap 8.1 mEq/L (5.0-15.0); Bilirubin Total 0.4 mg/dL (0.2-1.0); Globulin 3.5 g/dL (2.3-3.5); Magnesium 2.4 mg/dL (1.6-2.4); Potassium 3.1 mEq/L (3.5-5.1); Protein, Total 6.1 g/dL (6.4-8.2)
[2024-12-02 05:14] LABS: Absolute Basophils 0.1 K/uL (0-0.5); Absolute Eosinophils 0.4 K/uL (0-0.5); Absolute Lymphocytes (CBC) 1.6 K/uL (0.7-4.9); Absolute Neutrophil 5.8 K/uL (1.8-8.0); Basophils % 0.8 % (0-1.3); Eosinophils % 4.5 % (0-4.4); Hematocrit 38.1 % (39.6-49.0); Hemoglobin 13.3 g/dL (13.6-17.9); Lymphocytes % 18.1 % (15.3-44.8); MCH 29.3 pg (27.0-35.0); MCV 83.8 fL (80-100); Monocytes % 10.8 % (3.3-12.3); Neutrophils % 65.8 % (41.7-73.7); Platelets 240 thou/uL (152-406); RBC Red Blood Cell Count 4.55 M/uL (4.33-5.43); Red Cell Distribution Width 13.6 % (12.1-15.2)
[2024-12-02 05:39] LABS: Albumin 2.5 g/dL (3.4-5.0); Albumin/Globulin Ratio 0.7 (1.1-1.8); Anion Gap 7.1 mEq/L (5.0-15.0); Bilirubin Total 0.5 mg/dL (0.2-1.0); Globulin 3.8 g/dL (2.3-3.5); Phosphorus 1.8 mg/dL (2.5-4.9); Potassium 3.1 mEq/L (3.5-5.1); Protein, Total 6.3 g/dL (6.4-8.2)
--- NOTE | 2024-12-02 08:49 | P.PN ---
Date of Service: 12/02/24 Subjective Feeling better, advancing diet as tolerated Continuing to replace electrolytes ROS 10 point ROS as noted above, otherwise negative Physical Exam General: AAOx3, NAD HEENT: Atraumatic, PERRLA, Mucous membr. moist/pink Neck: Supple, 2+ carotid pulse no bruit, No LAD Respiratory: Clear BBS, Normal air movement, on RA Cardiovascular: NSR, Normal S1 S2, no murmur noted Gastrointestinal: Normal bowel sounds, soft on palaption, nontender Musculoskeletal: No tenderness Integumentary: No rashes Neurological: Normal speech, Normal strength at 5/5 x4 extr Vitals Reviewed Assessment: Severe hypomagnesemia and hypokalemia Hypocalcemia Nausea/vomiting/diarrhea Diabetes mellitus type [id number]-ocayskdkx Dehydration Leukocytosis History of GERD/CT with gastric wall thickening Hypertension BPH Plan: Severe hypomagnesemia and hypokalemia Hypocalcemia Severe electrolyte derangements likely secondary to nausea/vomiting/diarrhea for the last 1 week BMP daily, continue to replace PRN Electrolyte protocols in place QTc 470 Nausea/vomiting/diarrhea Abdomen soft/nontender/distended COVID and influenza negative CT chest abdomen pelvis showing inflammation of the gastric wall Reports last EGD around 2 years ago, has never been told of any abnormalities of the stomach Twice daily PPI, n.p.o., advance diet as tolerated Empiric antibiotics with Zosyn-avoiding antibiotics that prolonged QT with electrolyte regimens Diabetes mellitus type 6mho-eeziycc-yxyoateam Every 6 hours Accu-Chek, sliding scale insulin- serum glucose mildly elevated A1C in the AM Was previously on Ozempic but stopped a month ago Not on any medications for diabetes at this time Dehydration Leukocytosis-resolved Significant dehydrated, suspect leukocytosis may be related to hemoconcentration Continue IV fluids, monitor CBC daily Monitor for fevers-afebrile this admission Urine not concerning. No tract infection History of GERD/CT with gastric wall thickening Twice daily PPI Advance diet as tolerated Would benefit with EGD outpatient if his diet can be advanced Hypertension BPH Continue home medications DVT PPX: Lovenox Code status: Full Discharge Plan: Home Plan to discharge in: Greater than 2 days <Shantelle Patel - Last Filed: 12/02/24 13:40> Chart has been reviewed. Events of the last 24 hours have been noted. Case discussed with MARYJANE. I performed a substantial part of the MDM during this patient's care today. I personally made or approved the documented management plan and acknowledge its risk of complications. I agree with the findings and documentation provided in the MARYJANE's notes <Jasiel Duong - Last Filed: 12/26/24 04:19>
[2024-12-02] MEDS: POTASS/SODIUM PHOSPHATE 1 PKT POWD.PACK PO SCH (09:37)
[2024-12-02] MEDS: POTASSIUM CL SA 10 MEQ TAB PO ONE ×2 (09:38→20:13)
[2024-12-02] MEDS: PRIMIDONE 50 MG TAB PO SCH (11:10)
[2024-12-02] MEDS: CALCIUM GLUCONATE 1 GM IVPB 1 GM/50 ML BAG IV SCH (11:13)
[2024-12-02] MEDS: POTASSIUM PHOS 30 MM in NA CHLORIDE 0.9% 500 ML IV SCH (11:16)
[2024-12-02] MEDS: VALSARTAN 160 MG TAB PO SCH (20:13)
[2024-12-02] MEDS: PANTOPRAZOLE 40MG TABLET PO SCH (20:14)
[2024-12-02] MEDS: TRAZODONE 150 MG TAB PO SCH (20:15)
[2024-12-03 05:43] LABS: Absolute Basophils 0.1 K/uL (0-0.5); Absolute Eosinophils 0.3 K/uL (0-0.5); Absolute Lymphocytes (CBC) 1.6 K/uL (0.7-4.9); Absolute Monocytes 0.9 K/uL (0.1-1.3); Basophils % 0.9 % (0-1.3); Eosinophils % 4.1 % (0-4.4); Hematocrit 33.7 % (39.6-49.0); Hemoglobin 12.1 g/dL (13.6-17.9); Lymphocytes % 22.9 % (15.3-44.8); MCH 30.1 pg (27.0-35.0); MCHC 35.9 g/dL (32.0-36.0); MCV 83.9 fL (80-100); MPV 8.8 fL (7.6-11.3); Monocytes % 13.6 % (3.3-12.3); Neutrophils % 58.5 % (41.7-73.7); Platelets 214 thou/uL (152-406); RBC Red Blood Cell Count 4.02 M/uL (4.33-5.43); Red Cell Distribution Width 13.4 % (12.1-15.2)
[2024-12-03 06:10] LABS: Albumin 2.2 g/dL (3.4-5.0); Albumin/Globulin Ratio 0.6 (1.1-1.8); Anion Gap 7.7 mEq/L (5.0-15.0); Bilirubin Total 0.5 mg/dL (0.2-1.0); Globulin 3.5 g/dL (2.3-3.5); Magnesium 1.3 mg/dL (1.6-2.4); Phosphorus 1.9 mg/dL (2.5-4.9); Potassium 3.7 mEq/L (3.5-5.1); Protein, Total 5.7 g/dL (6.4-8.2); Thyroid Stimulating Hormone 1.96 uIU/mL (0.358-3.740)
[2024-12-03] MEDS: POTASSIUM CL SA 10 MEQ TAB PO ONE (07:16)
[2024-12-03] MEDS: POTASS/SODIUM PHOSPHATE 1 PKT POWD.PACK PO SCH (07:18)
[2024-12-03] MEDS: Magnesium Sulfate 2gm IVPB 2 G/50 ML BAG IV ONE ×2 (07:18→11:11)
[2024-12-03] MEDS ORDERED: HOME MED 1 EA UNK (Omeprazole [Prilosec] 40 MG Capsule.Dr) PO SCH (09:00)
[2024-12-03] MEDS: CALCIUM GLUCONATE 1 GM IVPB 1 GM/50 ML BAG IV ONE (09:47)
[2024-12-03] MEDS: CALCIUM GLUCONATE 1 GM IVPB 1 GM/50 ML BAG IV SCH (12:19)
[2024-12-03] MEDS: MAGNESIUM CHLORIDE 64 MG TAB PO SCH (12:19)
--- NOTE | 2024-12-03 12:21 | P.PN ---
Date of Service: 12/01/24 Subjective Patient clinically improving; electrolytes have improved. Continue with supplementation. Otherwise, patient with no new complaints Physical Examination - Vitals reviewed - Physical Exam Vitals: reviewed General: Alert, In no apparent distress, Oriented x3 Respiratory: Clear to auscultation bilaterally, Normal air movement Cardiovascular: Regular rate/rhythm, Normal S1 S2 Gastrointestinal: Normal bowel sounds, No tenderness; central obesity Musculoskeletal: muscular atrophy Neurological: No focal deficits; generalized weakness Assessment and Plan - Assessment Assessment: -Severe hypomagnesemia/hypokalemia/Hypocalcemia -Nausea/vomiting/diarrhea -Diabetes mellitus type 2/mjx-phivabe-bjlfcxgyq -Dehydration -Leukocytosis -History of GERD/CT with gastric wall thickening -Hypertension -BPH - Plan Plan: 1. Severe hypomagnesemia/hypokalemia/Hypocalcemia Supplement electrolytes; labs pending 2. Nausea/vomiting/diarrhea improved 3. Diabetes mellitus type 2; NIDDM strict BS control 4. Dehydration/Leukocytosis IVFs 5. History of GERD/CT with gastric wall thickening PPI 6. Hypertension/BPH Continue home medications DVT PPX: Lovenox Code status: Full Discharge Plan: Home Plan to discharge in: Greater than 2 days - Advance Directives Does patient have a Living Will: No Does patient have a Durable POA for Healthcare: No - Code Status/Comfort Care Code Status Assessed: Yes (Full code) Critical Care: NO Time Spent Managing Pts Care (In Minutes): 35
--- NOTE | 2024-12-03 13:23 | P.PN ---
Date of Service: 12/03/24 Subjective Sleeping on examination will need continued replacement and stablization of electrolytes ROS 10 point ROS as noted above, otherwise negative Physical Exam General: Alert and oriented x3, No acute distress, conversing well HEENT: Atraumatic, PERRLA, MMM Neck: Supple, 2+ carotid pulse no bruit, No LAD Respiratory: Clear BBS, Normal air movement, on RA Cardiovascular: RRR, Normal S1 S2, no murmur noted Gastrointestinal: Normal bowel sounds, soft and nontender on palpation Musculoskeletal: No tenderness Integumentary: No rashes Neurological: Normal speech, Normal strength at 5/5 x4 extr Vitals Reviewed Assessment: Severe electrolyte imbalance Nausea/vomiting/diarrhea Diabetes mellitus type [id number]-[id number]-wqrwllzvt Dehydration Leukocytosis History of GERD/CT with gastric wall thickening Hypertension BPH Plan: Severe electrolyte imbalance hypomagnesemia, hypokalemia, and Hypocalcemia Severe electrolyte derangements likely secondary to nausea/vomiting/diarrhea for the last 1 week BMP daily, continue to replace PRN Electrolyte protocols in place QTc 470 Nausea/vomiting/diarrhea Abdomen soft/nontender/distended COVID and influenza negative CT chest abdomen pelvis showing inflammation of the gastric wall Reports last EGD around 2 years ago, has never been told of any abnormalities of the stomach Twice daily PPI, n.p.o., advance diet as tolerated Empiric antibiotics with Zosyn-avoiding antibiotics that prolonged QT with electrolyte regimens Diabetes mellitus type 2xkk-zgyhlsw-tltlqnqgo Every 6 hours Accu-Chek, sliding scale insulin- serum glucose mildly elevated A1C 6.5 Was previously on Ozempic but stopped a month ago Not on any medications for diabetes at this time Dehydration Leukocytosis-resolved Significant dehydrated, suspect leukocytosis may be related to hemoconcentration Continue IV fluids, monitor CBC daily Monitor for fevers-afebrile this admission Urine not concerning. No tract infection History of GERD/CT with gastric wall thickening Twice daily PPI Advance diet as tolerated Would benefit with EGD outpatient if his diet can be advanced Hypertension BPH Continue home medications DVT PPX: Lovenox Code status: Full Discharge Plan: Home Plan to discharge in: Greater than 2 days <Shantelle Patel - Last Filed: 12/04/24 13:04> Chart has been reviewed. Events of the last 24 hours have been noted. Case discussed with MARYJANE. I performed a substantial part of the MDM during this patient's care today. I personally made or approved the documented management plan and acknowledge its risk of complications. I agree with the findings and documentation provided in the MARYJANE's notes <Jasiel Duong - Last Filed: 12/26/24 04:20>
[2024-12-03] MEDS: CALCIUM CARB 500MG/VIT D 200 IU TAB PO SCH (21:44)
[2024-12-04 06:16] VITALS: O2SAT 96
[2024-12-04] MEDS: INSULIN REGULAR (HUMAN) 100 UNIT/ML SQ SCH (07:30)
[2024-12-04 11:54] VITALS: BP 161/83; TEMP 98.4
[2024-12-04 12:09] LABS: Absolute Basophils 0.1 K/uL (0-0.5); Absolute Eosinophils 0.3 K/uL (0-0.5); Absolute Lymphocytes (CBC) 1.2 K/uL (0.7-4.9); Absolute Monocytes 1.1 K/uL (0.1-1.3); Absolute Neutrophil 4.9 K/uL (1.8-8.0); Basophils % 0.8 % (0-1.3); Eosinophils % 3.4 % (0-4.4); Hematocrit 36.3 % (39.6-49.0); Hemoglobin 12.9 g/dL (13.6-17.9); Lymphocytes % 16.6 % (15.3-44.8); MCH 30.1 pg (27.0-35.0); MCHC 35.5 g/dL (32.0-36.0); MCV 84.8 fL (80-100); Monocytes % 14.4 % (3.3-12.3); Neutrophils % 64.8 % (41.7-73.7); Platelets 242 thou/uL (152-406); RBC Red Blood Cell Count 4.28 M/uL (4.33-5.43); Red Cell Distribution Width 13.7 % (12.1-15.2)
[2024-12-04 12:31] LABS: Albumin 2.5 g/dL (3.4-5.0); Albumin/Globulin Ratio 0.6 (1.1-1.8); Anion Gap 6.8 mEq/L (5.0-15.0); Bilirubin Total 0.5 mg/dL (0.2-1.0); Globulin 3.9 g/dL (2.3-3.5); Magnesium 1.5 mg/dL (1.6-2.4); Phosphorus 1.7 mg/dL (2.5-4.9); Potassium 4.8 mEq/L (3.5-5.1); Protein, Total 6.4 g/dL (6.4-8.2)
--- NOTE | 2024-12-04 13:14 | P.PN ---
Date of Service: 12/04/24 Subjective Awake, aggitation noted, Omar reports having low potassium in the past Some improvement to electrolytes this morning encouraging increased PO intake Will continue to replace and monitor daily ROS 10 point ROS as noted above, otherwise negative Physical Exam General: AAOx3, conversing well HEENT: Atraumatic, PERRLA Neck: Supple, 2+ carotid pulse no bruit, No LAD Respiratory: nonlabored breathing, Normal air movement, on RA Cardiovascular: Normal sinus rhythm, Normal S1 S2 Gastrointestinal: Normal bowel sounds, soft and nontender on palpation Musculoskeletal: No tenderness Integumentary: No rashes Neurological: Normal speech, Normal strength at 5/5 x4 extr Vitals Reviewed Assessment: Severe electrolyte imbalance Nausea/vomiting/diarrhea Diabetes mellitus type 4ayf-[id number]-ojrvxtuwz Dehydration Leukocytosis History of GERD/CT with gastric wall thickening Hypertension BPH Plan: Severe electrolyte imbalance hypomagnesemia, hypokalemia, and Hypocalcemia Severe electrolyte derangements likely secondary to nausea/vomiting/diarrhea for the last 1 week BMP daily, continue to replace PRN Electrolyte protocols in place QTc 470 On telemetry- NSR Nausea/vomiting/diarrhea Abdomen soft/nontender/distended COVID and influenza negative CT chest abdomen pelvis showing inflammation of the gastric wall Reports last EGD around 2 years ago, has never been told of any abnormalities of the stomach Twice daily PPI, advancing diet as tolerated Empiric antibiotics with Zosyn-avoiding antibiotics that prolonged QT with electrolyte regimens Diabetes mellitus type 8way-hwjybym-wmetiuflb Every 6 hours Accu-Chek, sliding scale insulin- serum glucose mildly elevated A1C 6.5 Was previously on Ozempic but stopped a month ago Not on any medications for diabetes at this time Dehydration Leukocytosis-resolved Significant dehydrated, suspect leukocytosis may be related to hemoconcentration Continue IV fluids, monitor CBC daily Monitor for fevers-afebrile this admission Urine not concerning. No tract infection History of GERD/CT with gastric wall thickening Twice daily PPI Advance diet as tolerated Would benefit with EGD outpatient if his diet can be advanced Hypertension BPH Continue home medications DVT PPX: Lovenox Code status: Full Discharge Plan: Home Plan to discharge in: Greater than 2 days <Shantelle Patel - Last Filed: 12/04/24 13:08> Chart has been reviewed. Events of the last 24 hours have been noted. Case discussed with MARYJANE. I performed a substantial part of the MDM during this patient's care today. I personally made or approved the documented management plan and acknowledge its risk of complications. I agree with the findings and documentation provided in the MARYJANE's notes <Jasiel Duong - Last Filed: 12/26/24 04:20>
[2024-12-04] MEDS ORDERED: Magnesium Sulfate 2gm IVPB 2 G/50 ML BAG IV ONE (13:22)
[2024-12-04] MEDS: MAGNESIUM CHLORIDE 64 MG TAB PO ONE (13:38)
[2024-12-04 15:34] LABS: Ferritin 79.2 ng/mL (26-388)
[2024-12-06 14:35] LABS: 1,25 Dihydroxy Vitamin D3 67 pg/mL; Vitamin D 1,25-Dihydroxy Total 67 pg/mL (18-72); Vitamin D,1,25-OH2, D2 <8 pg/mL
--- NOTE | 2024-12-08 12:34 | EKG ---
Test Date: 2024-11-30 Test Time: 21:02:15 Pitch Gatherer: GILBERTO MEASUREMENT RESULTS: Intervals: Rate: 110 WV: 152 QRSD: 92 QT: 350 QTc: 473 [place]: P: 64 WV: 152 QRS: 22 T: -24 INTERPRETIVE STATEMENTS: Sinus rhythm with premature supraventricular complexes with occasional premature ventricular complexes ST & T wave abnormality, consider inferior ischemia Abnormal ECG Compared to ECG 08/23/2023 14:43:59 Atrial premature complex(es) now present Ventricular premature complex(es) now present ST (T wave) deviation now present Possible ischemia now present Electronically Signed On 12-08-24 12:19:10 ENGAGEMENT ENGINEER by Modesto Pisano
[2024-12-09 10:36] LABS: PRA,LC/MS/MS 0.13 ng/mL/h (0.25-5.82)
--- NOTE | 2024-12-26 04:22 | P.DS ---
Discharge Date: 12/04/24 Disposition: ROUTINE DISCHARGE Discharge Condition: GOOD Reason for Admission: Hypomagnesemia, hypokalemia Brief History of Present Illness: 69-year-old male with history of diet-controlled diabetes, GERD, hypertension, BPH, essential tremor presents to the emergency department with chief complaint of 1 week of nausea/vomiting/diarrhea. He denies abdominal pain, sick contacts, denies cough congestion. He reports multiple episodes of nausea/vomiting and diarrhea daily, had around 5 episodes of diarrhea today. Denies similar episodes in the past, last had EGD "a couple years ago". Patient was evaluated in the emergency department CT of the chest abdomen pelvis was obtained which showed apparent thickening of the wall of stomach which may indicate inflammation. Patient has severe electrolyte derangements including a potassium of 2.4, calcium of 6.3, magnesium of less than 0.5 lipase is normal white blood cell count 15.7 hemoglobin is 15.1 platelets 296 UA not concerning for UTI, denies fever and chills at home. Chemistry was repeated given significant abnormalities and does appear accurate, patient was given IV potassium, IV magnesium, IV calcium in the ED his QTc is around 470, he is having ectopy on the bedside monitor with frequent PVCs. Given severe electrolyte derangements will admit to ICU for now for close monitoring. He was negative for COVID and flu. Hospital Course: Patient has done well during hospital stay. Patient is clinically doing much better. Labs are stable. At this time, patient is stable for discharge with outpatient follow-up with PCP and specialist. Vital Signs/Physical Exam: Temp Pulse Resp BP Pulse Ox 98.4 F 78 16 161/83 H 98 12/04/24 11:53 12/04/24 11:53 12/04/24 11:53 12/04/24 11:53 12/04/24 11:53 General: Alert, In no apparent distress, Oriented x3 Laboratory Data at Discharge: WBC 7.50 thou/uL (4.3-10.9) 12/04/24 11:45 Hgb 12.9 g/dL (13.6-17.9) L 12/04/24 11:45 Hct 36.3 % (39.6-49.0) L 12/04/24 11:45 Plt Count 242 thou/uL (152-406) 12/04/24 11:45 PT 16.4 SECONDS (9.4-12.5) H 11/30/24 20:30 INR 1.57 11/30/24 20:30 Sodium 135 mEq/L (136-145) L 12/04/24 11:45 Potassium 4.8 mEq/L (3.5-5.1) 12/04/24 11:45 BUN 9 mg/dL (7-18) 12/04/24 11:45 Creatinine 0.89 mg/dL (0.70-1.30) 12/04/24 11:45 Glucose 97 mg/dL (74-106) 12/04/24 11:45 Phosphorus 1.7 mg/dL (2.5-4.9) L 12/04/24 11:45 Magnesium 1.5 mg/dL (1.6-2.4) L 12/04/24 11:45 Total Bilirubin 0.5 mg/dL (0.2-1.0) 12/04/24 11:45 AST 15 U/L (15-37) 12/04/24 11:45 ALT 23 U/L (16-61) 12/04/24 11:45 Alkaline Phosphatase 108 U/L (45-117) 12/04/24 11:45 Lipase 58 U/L (13-75) 11/30/24 20:30 Home Medications: Amlodipine [Norvasc*] 1 tab PO DAILY 12/01/24 Atorvastatin Calcium 1 tab PO DAILY 12/01/24 Montelukast [Singulair*] 1 tab PO DAILY 12/01/24 Omeprazole [Prilosec] 1 tab PO DAILY 12/01/24 Primidone 1 tab PO DAILY 12/01/24 Trazodone [Desyrel*] 2 tab PO BEDTIME 12/01/24 Valsartan 1 tab PO BEDTIME 12/01/24 Calcium Carbonate/Vitamin D3 [Oscal 500 + Vit D 200 Iu Tab*] 2 tab PO BID #120 tab 12/04/24 Magnesium Chloride [Slow-Mag*] 128 mg PO BID #120 tab 12/04/24 Spironolactone [Aldactone*] 25 mg PO DAILY #30 tab 12/04/24 New Medications: Spironolactone [Aldactone*] 25 mg PO DAILY #30 tab Calcium Carbonate/Vitamin D3 [Oscal 500 + Vit D 200 Iu Tab*] 2 tab PO BID #120 tab Magnesium Chloride [Slow-Mag*] 128 mg PO BID #120 tab Physician Discharge Instructions: -DC IV and DC home with home health -Follow-up with PCP, Dr. Watkins, as scheduled, in 1 to 2 weeks -Follow-up with Endocrinology in 1 to 2 weeks -Please call Dr. Duong at [phone] if any questions regarding hospital stay -Please call nursing station at [phone] if any nursing or medication questions -Return to the emergency room if symptoms worsen Diet: Regular Activity: Fall precautions Followup: Amado Watkins DO [ACTIVE - CAN ADMIT] - 1-2 Weeks Time spent managing pt's care (in minutes): 35
== END 2024-12-04 14:46 | disposition home or self-care (01) | DRG 641 ==
LOC: ER 20:01 → ERHOLD 22:45 → 2ND 12-01 17:24
PROVIDERS: ADMIT Hospitalist; ATTEND Hospitalist
DX: E87.6 Hypokalemia (principal); E83.42 Hypomagnesemia; E83.51 Hypocalcemia; E66.9 Obesity, unspecified; E86.0 Dehydration; I10 Essential (primary) hypertension; G25.81 Restless legs syndrome; I49.3 Ventricular premature depolarization; D72.829 Elevated white blood cell count, unspecified; E11.65 Type 2 diabetes mellitus with hyperglycemia; K21.9 Gastro-esophageal reflux disease without esophagitis; N40.0 Benign prostatic hyperplasia without lower urinary tract symptoms; F17.210 Nicotine dependence, cigarettes, uncomplicated; Z71.6 Tobacco abuse counseling; Z60.2 Problems related to living alone; Z88.5 Allergy status to narcotic agent; Z11.52 Encounter for screening for COVID-19; Z68.34 Body mass index [BMI] 34.0-34.9, adult; Z90.49 Acquired absence of other specified parts of digestive tract
CPT/HCPCS: 36415; 71045; 71250; 74176; 80048; 80053; 80076; 81001; 82088; 82306; 82435; 82533; 82570; 82652; 82728; 82947; 83036; 83519; 83540; 83605; 83615; 83690; 83735; 83880; 83930; 83935; 83970; 84100; 84132; 84244; 84300; 84439; 84443; 84484; 85025; 85610; 87040; 87804; 87811; 93005; 97161; 99285; J0612; J1650; J1720; J2405; J2470; J2543; J3411; J3475; J3480; J7030; J7040; J8597